=== PATIENT | female | born 1955 | race Caucasian/White ===

== ENCOUNTER → 2017-07-13 | Outpatient (CLI) | payer BC ==
--- NOTE | 2017-07-14 08:03 | MM ---
Reason for exam: screening (asymptomatic). Last mammogram was performed 1 year ago. History: Patient is postmenopausal and has history of other cancer at age 51. Taking estrogen for 9 months. Physical Findings: A clinical breast exam by your physician is recommended on an annual basis and results should be correlated with mammographic findings. MG Screening Mammo w CAD Bilateral CC and MLO view(s) were taken. Prior study comparison: July 03, 2016, bilateral MG screening mammo w CAD. July 18, 2015, bilateral MG screening mammo w CAD. There are scattered fibroglandular densities. Stable benign calcifications. There is no discrete abnormality. No significant changes when compared with prior studies. ASSESSMENT: Benign, BI-RAD 2 RECOMMENDATION: Routine screening mammogram of both breasts in 1 year.
== END | disposition home or self-care (01) ==
LOC: RADMAMWWP 06:52
PROVIDERS: ATTEND Family Medicine
DX: Z12.31 Encounter for screening mammogram for malignant neoplasm of breast (principal)

== ENCOUNTER → 2018-07-25 | Outpatient (CLI) | payer BC ==
--- NOTE | 2018-07-26 10:29 | MM ---
Reason for exam: screening (asymptomatic). Last mammogram was performed 1 year ago. History: Patient is postmenopausal and has history of other cancer at age 51. Taking estrogen for 9 months. Physical Findings: A clinical breast exam by your physician is recommended on an annual basis and results should be correlated with mammographic findings. MG 3D Screening Mammo W/Cad Bilateral CC and MLO view(s) were taken. Prior study comparison: July 13, 2017, bilateral MG screening mammo w CAD. July 03, 2016, bilateral MG screening mammo w CAD. There are scattered fibroglandular densities. There are benign appearing round calcifications bilaterally. There is chronic nodularity bilaterally. There is no discrete abnormality. ASSESSMENT: Benign, BI-RAD 2 RECOMMENDATION: Routine screening mammogram of both breasts in 1 year.
== END | disposition home or self-care (01) ==
LOC: RADMAMWWP 07:11
PROVIDERS: ATTEND Family Medicine
DX: Z12.31 Encounter for screening mammogram for malignant neoplasm of breast (principal)
CPT/HCPCS: 77063; 77067

== ENCOUNTER → 2019-07-26 | Outpatient (CLI) | payer MEDICARE ==
[2019-07-26 08:34] LABS: Basophils # (A) 0.1 k/uL (0-0.2); Basophils % (A) 1 %; Eosinophils # (A) 0.1 k/uL (0-0.7); Eosinophils % (A) 2 %; Lymphocytes % (A) 33 %; MCH 29.2 pg (25.0-35.0); MCHC 33.3 g/dL (31.0-37.0); MCV 87.7 fL (80.0-100.0); Mean Platelet Volume 6.1; Monocytes # (A) 0.3 k/uL (0-1.0); Monocytes % (A) 5 %; Neutrophils # (A) 3.4 k/uL (1.3-7.7); Neutrophils % (A) 57 %; Platelet Count 313 k/uL (150-450); RBC 5.13 m/uL (3.80-5.40); RDW 13.1 % (11.5-15.5); WBC 6.1 k/uL (3.8-10.6)
[2019-07-26 08:40] LABS: Albumin 4.7 g/dL (3.5-5.0); Calcium 10.4 mg/dL (8.4-10.2); Total Bilirubin 0.5 mg/dL (0.2-1.3); Total Protein 8.2 g/dL (6.3-8.2)
[2019-07-26 09:36] LABS: T4, Free (Free Thyroxine) 1.19 ng/dL (0.78-2.19)
--- NOTE | 2019-07-27 09:02 | MM ---
Reason for exam: screening (asymptomatic). Last mammogram was performed 1 year ago. History: Patient is postmenopausal and has history of other cancer at age 51. Took estrogen for 9 months. Physical Findings: A clinical breast exam by your physician is recommended on an annual basis and results should be correlated with mammographic findings. MG 3D Screening Mammo W/Cad Bilateral CC and MLO view(s) were taken. Prior study comparison: July 25, 2018, bilateral MG 3d screening mammo w/cad. July 13, 2017, bilateral MG screening mammo w CAD. There are scattered fibroglandular densities. Benign appearing calcifications in the right breast. No significant changes when compared with prior studies. ASSESSMENT: Benign, BI-RAD 2 RECOMMENDATION: Routine screening mammogram of both breasts in 1 year.
== END | disposition home or self-care (01) ==
LOC: RADMAMWWP 07:23
PROVIDERS: ATTEND Family Medicine
DX: Z12.31 Encounter for screening mammogram for malignant neoplasm of breast (principal); I10 Essential (primary) hypertension; Z11.59 Encounter for screening for other viral diseases
CPT/HCPCS: 36415; 77063; 77067; 80053; 80061; 84439; 84443; 85025; 86803

== ENCOUNTER 2020-06-21 20:26 | Inpatient (IN) | payer MEDICARE ==
[2020-06-21] MEDS ORDERED: SODIUM CHLORIDE 0.9% 1,000 ML IV STA (21:05)
[2020-06-21] MEDS ORDERED: ONDANSETRON 4 MG/2 ML VIAL IVP STA (21:05)
[2020-06-21] MEDS ORDERED: MORPHINE SULFATE 4 MG/ML SYRINGE IV STA ×2 (21:05→22:46)
[2020-06-21 21:46] LABS: Basophils % (A) 0 %; Eosinophils # (A) 0.3 k/uL (0-0.7); Eosinophils % (A) 2 %; HCT 45.2 % (34.0-46.0); HGB 14.6 gm/dL (11.4-16.0); Lymphocytes # (A) 1.4 k/uL (1.0-4.8); Lymphocytes % (A) 11 %; MCH 27.8 pg (25.0-35.0); MCHC 32.3 g/dL (31.0-37.0); Mean Platelet Volume 6.7; Monocytes # (A) 0.5 k/uL (0-1.0); Monocytes % (A) 4 %; Neutrophils # (A) 10.9 k/uL (1.3-7.7); Neutrophils % (A) 83 %; Platelet Count 321 k/uL (150-450); RBC 5.26 m/uL (3.80-5.40); RDW 12.8 % (11.5-15.5); WBC 13.1 k/uL (3.8-10.6)
[2020-06-21 21:55] LABS: ALT 27 U/L (4-34); AST 32 U/L (14-36); African American GFR (CKD) >90 (>60 ml/min/1.73 sqM); Albumin 4.4 g/dL (3.5-5.0); Alkaline Phosphatase 63 U/L (38-126); Anion Gap 6 mmol/L; Blood Urea Nitrogen 14 mg/dL (7-17); Calcium 9.7 mg/dL (8.4-10.2); Carbon Dioxide 25 mmol/L (22-30); Chloride 104 mmol/L (98-107); Glucose 112 mg/dL (74-99); Non-African American GFR(CKD) 85 (>60 ml/min/1.73 sqM); Potassium 4.1 mmol/L (3.5-5.1); Sodium 135 mmol/L (137-145); Total Bilirubin 0.5 mg/dL (0.2-1.3); Total Protein 7.4 g/dL (6.3-8.2)
[2020-06-21 22:40] LABS: Appearance,Urine Clear (Clear); Bilirubin,Urine Negative (Negative); Blood,Urine Negative (Negative); Color,Urine Yellow; Glucose,Urine (UA) Negative (Negative); Ketones,Urine 1+ (Negative); Leukocyte Esterase,Urine Negative (Negative); Nitrite,Urine Negative (Negative); Protein,Urine Negative (Negative); Specific Gravity,Urine 1.018 (1.001-1.035); Urobilinogen,Urine <2.0 mg/dL (<2.0)
--- NOTE | 2020-06-21 23:14 | CT ---
EXAMINATION TYPE: CT abdomen pelvis w con DATE OF EXAM: 06/21/2020 COMPARISON: None HISTORY: abdominal pain, constipation CT DLP: 1526.90 mGycm Automated exposure control for dose reduction was used. CONTRAST: Performed with IV Contrast, patient injected with 100 mL of Isovue 300. Images obtained from the diaphragm to the floor the pelvis with IV contrast. Lung bases are clear of consolidation. There is no pleural effusion. There is some subdiaphragmatic c alcification on the right side adjacent to the liver. This could relate to old hematoma or infection. Spleen appears normal. There is no evidence of pancreatic mass. There are clips from cholecystectomy . Bile ducts are not dilated. There is mild fat stranding in the left anterior pararenal space. There is no sign of pancreatic mass. Pancreatic duct distally appears slightly enlarged. Distal duct measu res up to 7 mm. There is no retroperitoneal adenopathy. Kidneys show satisfactory contrast opacificat ion. There is no hydronephrosis. There are left-sided renal parapelvic cysts. There is no retroperito aroldo adenopathy. Bladder distends smoothly. There is no inguinal hernia. Uterus is anteverted. There are multiple sigmoid diverticula. There is no sign of diverticulitis. There is posterior fusion surgery with rods and screws from L3 to L5. There is no lumbar compression fracture. There is multilevel spondylotic changes in the thoracic and lumbar spine. The hip joints ar e intact. There is no evidence of a pelvic mass. Appendix is posterior and appears normal. IMPRESSION: There is a low density fluid in the left anterior pararenal space and around the spleen. The appearan ce is nonspecific. This could relate to pancreatitis. I do not see evidence of a pancreatic mass. Mil d ectasia of the distal pancreatic duct could relate to some degree of chronic pancreatitis. There is colonic diverticulosis without diverticulitis. Normal appendix. There is right-sided subphrenic calcification and minimal fluid that could be sequela of old infectio n or hemorrhage.
[2020-06-21] MEDS ORDERED: NALOXONE 0.4 MG/ML 1 ML VIAL IV PRN (23:43)
--- NOTE | 2020-06-21 23:45 | ED ---
General Adult HPI - General Chief complaint: Abdominal Pain Stated complaint: Abd Pain Time Seen by Provider: 06/21/20 20:39 Source: patient, family, RN notes reviewed, old records reviewed Mode of arrival: ambulatory Limitations: no limitations - History of Present Illness Initial comments: 64-year-old female patient proceeded to complain of abdominal pain. Patient reports that the pain began this morning and is generalized worsen the epigastric region. Denies any recent falls or trauma. Denies any other areas of pain or any other acute complaints. Systemic: Pt denies fatigue, fever/chills, rash. Pt denies weakness, night sweats, weight loss. Neuro: Pt denies headache, visual disturbances, syncope or pre-syncope. HEENT: Pt denies ocular discharge or irritation, otalgia, rhinorrhea, pharyngitis or notable lymphadenopathy. Cardiopulmonary: Pt denies chest pain, SOB, heart palpitations, dyspnea on exertion. Abdominal/GI: Pt denies diarrhea. : Pt denies dysuria, burning w/ urination, frequency/urgency. Denies new onset urinary or bowel incontinence. MSK: Pt denies myalgia, loss of strength or function in extremities. Neuro: Pt denies new onset weakness, paresthesias. - Related Data Home Medications Medication Instructions Recorded Confirmed Aspirin EC [Ecotrin Low Dose] 81 mg PO DAILY 06/21/20 06/21/20 Biotin 10,000 mcg PO DAILY 06/21/20 06/21/20 Cyclobenzaprine [Flexeril] 5 mg PO BID 06/21/20 06/21/20 Docusate [Colace] 100 mg PO BID PRN 06/21/20 06/21/20 Ibuprofen 200 mg PO Q8H PRN 06/21/20 06/21/20 Omeprazole 20 mg PO DAILY 06/21/20 06/21/20 Simvastatin [Zocor] 20 mg PO DAILY 06/21/20 06/21/20 Turmeric Root Extract [Turmeric] 500 mg PO DAILY 06/21/20 06/21/20 Ubidecarenone [Co Q-10] 400 mg PO DAILY 06/21/20 06/21/20 amLODIPine [Norvasc] 5 mg PO DAILY 06/21/20 06/21/20 diphenhydrAMINE [Benadryl] 25 mg PO HS 06/21/20 06/21/20 rOPINIRole HCL [Requip] 0.5 mg PO DAILY 06/21/20 06/21/20 Allergies Allergy/AdvReac Type Severity Reaction Status Date / Time Sulfa (Sulfonamide Allergy Anaphylaxis Verified 06/21/20 22:33 Antibiotics) Review of Systems ROS Statement: Those systems with pertinent positive or pertinent negative responses have been documented in the HPI. ROS Other: All systems not noted in ROS Statement are negative. Past Medical History Past Medical History: GERD/Reflux, Hyperlipidemia, Hypertension Additional Past Medical History / Comment(s): restless leg, back pain History of Any Multi-Drug Resistant Organisms: None Reported Past Surgical History: Back Surgery, Hernia Repair, Orthopedic Surgery, Tubal Ligation Additional Past Surgical History / Comment(s): right shoulder/wrist Past Psychological History: No Psychological Hx Reported Smoking Status: Never smoker Past Alcohol Use History: Occasional Past Drug Use History: None Reported General Exam - General Exam Comments Initial Comments: Constitutional: NAD, AOX3, Pt has pleasant affect. HEENT: NC/AT, trachea midline, neck supple, no lymphadenopathy. External ears appear normal, without discharge. Mucous membranes moist. Eyes PERRLA, EOM intact. There is no scleral icterus. No pallor noted. Cardiopulmonary: RRR, no murmurs, rubs or gallops, no JVD noted. Lungs CTAB in anterior and posterior castillo. No peripheral edema. Abdominal exam: Abdomen soft and non-distended. Abdomen tender epigastric region, mild generalized tenderness in all other quadrants.No hepatosplenomegaly. No ecchymosis Neuro: CN II-XII grossly intact. No nuchal rigidity. MSK: Full active ROM in upper and lower extremities, 5/5 stregnth. Limitations: no limitations Course Vital Signs 06/21/20 06/21/20 20:31 22:00 Temperature 98.4 F 98.4 F Pulse Rate 109 H 86 Respiratory 16 16 Rate Blood Pressure 151/83 143/73 O2 Sat by Pulse 95 96 Oximetry Medical Decision Making - Medical Decision Making 64-year-old female patient with the chief complaint abdominal pain. Patient vital signs are stable, afebrile. Abdomen is tender on palpation. Laboratory investigations are significant for leukocytosis, lipase over 20,000. CT abdomen and pelvis displayed consistent with pancreatitis. Patient initiated on IV fluids symptoms well-controlled and be admitted for further evaluation. Case discussed with Dr. Banks. - Lab Data Result diagrams: 06/21/20 21:25 06/21/20 21:25 Lab Results 06/21/20 06/21/20 06/21/20 Range/Units 21:25 21:25 21:25 WBC 13.1 H (3.8-10.6) k/uL RBC 5.26 (3.80-5.40) m/uL Hgb 14.6 (11.4-16.0) gm/dL Hct 45.2 (34.0-46.0) % MCV 86.0 (80.0-100.0) fL MCH 27.8 (25.0-35.0) pg MCHC 32.3 (31.0-37.0) g/dL RDW 12.8 (11.5-15.5) % Plt Count 321 (150-450) k/uL Neutrophils % 83 % Lymphocytes % 11 % Monocytes % 4 % Eosinophils % 2 % Basophils % 0 % Neutrophils # 10.9 H (1.3-7.7) k/uL Lymphocytes # 1.4 (1.0-4.8) k/uL Monocytes # 0.5 (0-1.0) k/uL Eosinophils # 0.3 (0-0.7) k/uL Basophils # 0.0 (0-0.2) k/uL Sodium 135 L (137-145) mmol/L Potassium 4.1 (3.5-5.1) mmol/L Chloride 104 (98-107) mmol/L Carbon Dioxide 25 (22-30) mmol/L Anion Gap 6 mmol/L BUN 14 (7-17) mg/dL Creatinine 0.74 (0.52-1.04) mg/dL Est GFR (CKD-EPI)AfAm >90 (>60 ml/min/1.73 sqM) Est GFR (CKD-EPI)NonAf 85 (>60 ml/min/1.73 sqM) Glucose 112 H (74-99) mg/dL Plasma Lactic Acid Eric (0.7-2.0) mmol/L Calcium 9.7 (8.4-10.2) mg/dL Total Bilirubin 0.5 (0.2-1.3) mg/dL AST 32 (14-36) U/L ALT 27 (4-34) U/L Alkaline Phosphatase 63 (38-126) U/L Troponin I (0.000-0.034) ng/mL Total Protein 7.4 (6.3-8.2) g/dL Albumin 4.4 (3.5-5.0) g/dL Lipase >14714 H (23-300) U/L Urine Color Yellow Urine Appearance Clear (Clear) Urine pH 6.0 (5.0-8.0) Ur Specific [place] 1.018 (1.001-1.035) Urine Protein Negative (Negative) Urine Glucose (UA) Negative (Negative) Urine Ketones 1+ H (Negative) Urine Blood Negative (Negative) Urine Nitrite Negative (Negative) Urine Bilirubin Negative (Negative) Urine Urobilinogen <2.0 (<2.0) mg/dL Ur Leukocyte Esterase Negative (Negative) 06/21/20 06/21/20 Range/Units 21:25 21:25 WBC (3.8-10.6) k/uL RBC (3.80-5.40) m/uL Hgb (11.4-16.0) gm/dL Hct (34.0-46.0) % MCV (80.0-100.0) fL MCH (25.0-35.0) pg MCHC (31.0-37.0) g/dL RDW (11.5-15.5) % Plt Count (150-450) k/uL Neutrophils % % Lymphocytes % % Monocytes % % Eosinophils % % Basophils % % Neutrophils # (1.3-7.7) k/uL Lymphocytes # (1.0-4.8) k/uL Monocytes # (0-1.0) k/uL Eosinophils # (0-0.7) k/uL Basophils # (0-0.2) k/uL Sodium (137-145) mmol/L Potassium (3.5-5.1) mmol/L Chloride (98-107) mmol/L Carbon Dioxide (22-30) mmol/L Anion Gap mmol/L BUN (7-17) mg/dL Creatinine (0.52-1.04) mg/dL Est GFR (CKD-EPI)AfAm (>60 ml/min/1.73 sqM) Est GFR (CKD-EPI)NonAf (>60 ml/min/1.73 sqM) Glucose (74-99) mg/dL Plasma Lactic Acid Eric 0.9 (0.7-2.0) mmol/L Calcium (8.4-10.2) mg/dL Total Bilirubin (0.2-1.3) mg/dL AST (14-36) U/L ALT (4-34) U/L Alkaline Phosphatase (38-126) U/L Troponin I <0.012 (0.000-0.034) ng/mL Total Protein (6.3-8.2) g/dL Albumin (3.5-5.0) g/dL Lipase (23-300) U/L Urine Color Urine Appearance (Clear) Urine pH (5.0-8.0) Ur Specific [place] (1.001-1.035) Urine Protein (Negative) Urine Glucose (UA) (Negative) Urine Ketones (Negative) Urine Blood (Negative) Urine Nitrite (Negative) Urine Bilirubin (Negative) Urine Urobilinogen (<2.0) mg/dL Ur Leukocyte Esterase (Negative) - EKG Data -: EKG Interpreted by Me (and Dr. Banks) EKG Comments: ventricular rate 90,. Full 196, QRS 106, QT/QTc 362/442. Normal sensory rhythm, left axis deviation. No concern for acute ischemia. Disposition Clinical Impression: Pancreatitis Disposition: ADMITTED IP TO THIS HOSP Condition: Serious Is patient prescribed a controlled substance at d/c from ED?: No Referrals: Katherine Byrd MD [Primary Care Provider] - 1-2 days
[2020-06-22] MEDS: SODIUM CHLORIDE 0.9% 1,000 ML IV SCH ×6 (02:00→23:43)
[2020-06-22] MEDS: HYDROmorphone 0.5 MG/0.5 ML SYRINGE IVP PRN ×6 (03:21→23:42)
[2020-06-22] MEDS ORDERED: TEMAZEPAM 15 MG CAP PO PRN (14:53)
[2020-06-22] MEDS ORDERED: ALPRAZolam 0.25 MG TAB PO PRN (14:53)
[2020-06-22] MEDS ORDERED: HYDROcodone/APAP 5-325MG 1 EACH TAB PO PRN (14:53)
[2020-06-22] MEDS: ONDANSETRON 4 MG/2 ML VIAL IVP PRN (15:40)
--- NOTE | 2020-06-22 15:40 | XR ---
EXAMINATION TYPE: XR chest 1V portable DATE OF EXAM: 06/22/2020 COMPARISON: NONE HISTORY: Chest pain TECHNIQUE: Single view FINDINGS: There is no heart failure nor confluent pneumonic infiltrate. Costophrenic angles are clear . The bony thorax is intact. IMPRESSION: No active cardiopulmonary disease.
--- NOTE | 2020-06-22 15:52 | HP ---
HISTORY AND PHYSICAL DATE OF SERVICE: 06/22/2020 CHIEF COMPLAINT: Abdominal pain. HISTORY OF PRESENT ILLNESS: This 64-year-old woman with a past medical history of hypertension, hyperlipidemia, cholecystectomy being followed by Dr. Byrd in the outpatient setting, complaining of abdominal pain yesterday which started in the epigastrium and radiating downwards. The patient also noted to have occasional pain also in the back. The patient unable to keep anything down and the patient came to [facility] and admitted for further evaluation and treatment. Evaluation showed significant elevated lipase and CT scan of the abdomen also showed pancreatitis with some associated fluid accumulation also. Patient admitted for further evaluation and treatment. There is no history of fever, rigors. No history of headache, loss of consciousness, seizures at this time. PAST MEDICAL HISTORY: Hypertension, hyperlipidemia, history of GERD, back surgery, cholecystectomy several years ago. MEDICATIONS: Ibuprofen, Colace, coenzyme Q, turmeric, biotin, Requip, Benadryl, Zocor, omeprazole, Ecotrin, Norvasc and Flexeril. ALLERGIES: SULFA. FAMILY HISTORY: No history of heart disease or strokes in the family. SOCIAL HISTORY: Occasional alcohol. No history of smoking. REVIEW OF SYSTEMS: ENT: No diminished vision. No diminished hearing. CARDIOVASCULAR: No angina or palpitations. RESPIRATIONS: No cough or hemoptysis. GI as mentioned earlier. : No dysuria. NERVOUS SYSTEM: No numbness, weakness. ALLERGY/IMMUNOLOGY: No asthma. No hayfever. MUSCULOSKELETAL: As mentioned earlier. HEMATOLOGY/ONCOLOGY: No history of anemia. ENDOCRINE: No history of diabetes or hypothyroidism. CONSTITUTIONAL: As mentioned earlier. DERMATOLOGY: Negative. RHEUMATOLOGY: Negative. PSYCHIATRIC: As mentioned earlier. PHYSICAL EXAMINATION: Alert and oriented times three. Pulse 89, blood pressure 130/63, respiration 12, temperature 98.8, pulse ox 98% on room air. HEENT: Conjunctivae normal. NECK: No JVD. CARDIOVASCULAR: S1, S2 muffled. RESPIRATORY: Breath sounds diminished in the bases. No rhonchi. No crackles. ABDOMEN: Soft. Obese. Mild diffuse tenderness present in the epigastrium and as well as lower part of the abdomen. No guarding. No rigidity. No mass palpable. No ascites. Bowel sounds present. LEGS: No edema. No swelling. NERVOUS SYSTEM: Higher functions as mentioned earlier. Moves all 4 limbs. No focal motor or sensory deficit. LYMPHATICS: No lymph nodes palpable in the neck, axillae, or groin. SKIN: No ulcer. No rash. No bleeding. JOINTS: No active deforming arthropathy. LABS: WBC 13.2, hemoglobin 14.6, sodium 130, potassium 4.1. Glucose is 112. Lipase is more than 20,000. ASSESSMENT: 1. Acute severe pancreatitis with severe abdominal pain. 2. Increased WBC. 3. Possible severe acute respiratory syndrome, present on admission. 4. Hyponatremia. 5. Increased random blood sugar. 6. History of cholecystectomy. 7. History of gastroesophageal reflux disease. 8. Hypertension. 9. Hyperlipidemia. 10.History of restless legs syndrome. 11.History of degenerative joint disease/back pain. 12.History of tubal ligation. 13.Obesity, with body mass index of 34.7. RECOMMENDATIONS AND DISCUSSION: This 64-year-old woman who presented with multiple complex medical issues, we will monitor the patient closely. Continue the current medications. Keep the patient n.p.o. except medications. Otherwise, symptomatic treatment. Pain management. Antinausea medications. Consult gastroenterology. Repeat labs. EKG showed no acute abnormality. I would recommend a portable chest x-ray also to complete the workup. Otherwise, the exact etiology of pancreatitis is unknown at this time. Overall prognosis guarded. Further recommendations to follow. A copy of this dictation being forwarded to Dr. Byrd who is the primary physician. MMRYLANL / YAHAIRAN: [id number] / MTDD
[2020-06-22] MEDS: PANTOPRAZOLE 40 MG/10 ML VIAL IVP SCH ×2 (15:58→21:55)
[2020-06-22] MEDS: HEPARIN SODIUM,PORCINE 5,000 UNIT/ML 1 ML VIAL SQ SCH ×2 (15:59→20:41)
[2020-06-22] MEDS: MEROPENEM 2 GM in SODIUM CHLORIDE 0.9% 100 ML IVPB SCH ×2 (16:59→23:42)
[2020-06-22 19:17] LABS: Appearance,Urine Clear (Clear); Bilirubin,Urine Negative (Negative); Blood,Urine Negative (Negative); Color,Urine Yellow; Glucose,Urine (UA) Negative (Negative); Ketones,Urine 1+ (Negative); Leukocyte Esterase,Urine Small (Negative); Mucus,Urine Rare /hpf; Nitrite,Urine Negative (Negative); PH, Urine 5.5 (5.0-8.0); Protein,Urine Trace (Negative); RBC,Urine 1 /hpf (0-5); Specific Gravity,Urine 1.021 (1.001-1.035); Squamous Epithelial Cell,Urine 2 /hpf (0-4); Urobilinogen,Urine <2.0 mg/dL (<2.0); WBC,Urine 11 /hpf (0-5)
[2020-06-23] MEDS: ACETAMINOPHEN TAB 500 MG TAB PO PRN ×2 (03:56→13:00)
[2020-06-23] MEDS: SODIUM CHLORIDE 0.9% 1,000 ML IV SCH ×4 (03:57→21:13)
[2020-06-23 05:23] LABS: Basophils # (A) 0.1 k/uL (0-0.2); Basophils % (A) 0 %; Eosinophils # (A) 0.2 k/uL (0-0.7); Eosinophils % (A) 1 %; HCT 38.8 % (34.0-46.0); HGB 12.3 gm/dL (11.4-16.0); Lymphocytes % (A) 7 %; MCH 28.1 pg (25.0-35.0); MCHC 31.8 g/dL (31.0-37.0); MCV 88.3 fL (80.0-100.0); Mean Platelet Volume 7.2; Monocytes # (A) 0.5 k/uL (0-1.0); Monocytes % (A) 4 %; Neutrophils # (A) 12.6 k/uL (1.3-7.7); Neutrophils % (A) 88 %; Platelet Count 181 k/uL (150-450); RBC 4.39 m/uL (3.80-5.40); WBC 14.4 k/uL (3.8-10.6)
[2020-06-23] MEDS: HYDROmorphone 0.5 MG/0.5 ML SYRINGE IVP PRN ×2 (05:25→19:42)
[2020-06-23] MEDS: MEROPENEM 2 GM in SODIUM CHLORIDE 0.9% 100 ML IVPB SCH ×3 (09:20→23:42)
[2020-06-23] MEDS: PANTOPRAZOLE 40 MG/10 ML VIAL IVP SCH ×2 (10:17→21:13)
[2020-06-23] MEDS: HEPARIN SODIUM,PORCINE 5,000 UNIT/ML 1 ML VIAL SQ SCH ×2 (10:18→21:14)
[2020-06-23] MEDS: amLODIPine 5 MG TAB PO SCH (10:18)
[2020-06-23 11:34] LABS: African American GFR (CKD) 110.1 (60.0-200.0); Albumin 3.5 g/dL (3.80-4.90); Albumin/Globulin Ratio 1.75 (1.60-3.17); Anion Gap 8.3 mmol/L (4.00-12.00); Calcium 8.2 mg/dL (8.7-10.3); Carbon Dioxide 21.7 mmol/L (21.6-31.8); Chol/HDL Ratio 2.37; LDL Cholesterol,Calculated 66.4 mg/dL (0.0-131.0); Potassium 4.3 mmol/L (3.5-5.5); Total Bilirubin 0.3 mg/dL (0.2-1.2); Total Protein 5.5 g/dL (6.2-8.2); VLDL Calculation 14.6 mg/dL (5.00-40.00)
[2020-06-23 11:39] VITALS: RESP 16
--- NOTE | 2020-06-23 13:35 | CONS ---
CONSULTATION DATE OF SERVICE: June 23, 2020. REASON FOR CONSULTATION: Acute pancreatitis. REQUESTING PHYSICIAN: Dr. Katherine Byrd. HISTORY OF PRESENT ILLNESS: The patient is a 64-year-old pleasant white female admitted to the hospital with acute onset of severe epigastric pain that started on Wednesday morning. The pain continued to progressively get worse associated with nausea, vomiting, came to the emergency room and was noted to have elevated amylase and lipase consistent with acute pancreatitis. She never had these symptoms in the past. She has remote history of gallbladder surgery in for gallstones. The patient denies any family history of pancreatitis. Prior to the onset of these symptoms, she was in good health. No recent NSAID use. No prior history of peptic ulcer disease. She denies taking any new medications recently. PAST MEDICAL HISTORY: Significant for hypertension, hyperlipidemia, gastroesophageal reflux disease. PAST SURGICAL HISTORY: Back surgery, hernia repair, orthopedic surgery with right shoulder and wrist surgery and tubal ligation. MEDICATIONS: Medications at home include Prilosec, Zocor, tumeric, coenzyme Q10, Norvasc, Benadryl, Requip, Colace, ibuprofen, aspirin, biotin, Flexeril. ALLERGIES: SULFA. SOCIAL HISTORY: No smoking. No alcohol use. FAMILY HISTORY: Unremarkable. REVIEW OF SYSTEMS: CARDIOPULMONARY: No chest pain, no shortness of breath. : No dysuria or hematuria. MUSCULOSKELETAL unremarkable. SKIN unremarkable. ENDOCRINE unremarkable. PSYCHIATRIC: Unremarkable. NEUROLOGY: Unremarkable. ENT/VISION: Unremarkable. CONSTITUTIONAL: No weight loss. No fever, chills, night sweats. PHYSICAL EXAMINATION: Appears comfortable. VITAL SIGNS: Stable. Blood pressure 119/69, pulse rate 95, temperature 98.6. HEENT examination unremarkable. Conjunctivae pink. Sclerae anicteric. Oral cavity no lesions. NECK no JVD or lymph node enlargement. CHEST was clear to auscultation. HEART: Regular rate and rhythm. ABDOMEN: Soft. Bowel sounds are positive. Mild tenderness. Mild to moderate tenderness in the epigastric area. Rest of the abdomen was slightly obese but nontender. EXTREMITIES: No pedal edema. NEUROLOGIC: Alert and oriented x3. No focal deficits. LABS: Done yesterday WBC 13.1, hemoglobin 14.6, platelets normal. Basic metabolic panel was within normal limits. AST, ALT, T-bilirubin, alkaline phosphatase are normal. Lipase is more than 20,000. Labs from today WBC 14.4, hemoglobin 12.3, platelets normal, but amylase and lipase are not available. CT of the abdomen done in the emergency room at the time of admission to the hospital showed changes consistent with acute pancreatitis, evidence of cholecystectomy. No evidence of pancreatic mass and no biliary ductal dilation. There was mild ectasia of the distal pancreatic duct and possibility of chronic pancreatitis could not be excluded, colonic diverticulosis seen. IMPRESSION: Acute pancreatitis, first episode. Patient presented with acute onset of severe epigastric pain two days ago with elevated amylase and lipase consistent with acute pancreatitis. Serum transaminases are within normal limits which makes it unlikely we are dealing with biliary pancreatitis. She has remote history of cholecystectomy 40 years ago. Etiology of pancreatitis remains unclear. She has no history of alcohol use and no family history of pancreatitis. RECOMMENDATIONS: 1. Continue with aggressive IV hydration. 2. Symptomatic and supportive care with pain medications. 3. We will start her on a clear liquid diet. 4. Requested for lipase for today, which is still pending. 5. Obtain antinuclear antibody serum fasting triglycerides and IgG4 levels. 6. We will follow with you closely. Thank you for this consultation. MMODL / IJN: [id number] /
--- NOTE | 2020-06-23 16:03 | PN ---
PROGRESS NOTE DATE OF SERVICE: 06/23/2020 This 64-year-old woman who was admitted with possible acute severe pancreatitis, also had acute severe abdominal pain. The amylase is still elevated to 237. Lipase is 259. The patient is being closely monitored at this time. White count is elevated to 14.4. The patient started on broad-spectrum IV antibiotics. The most recent chest x-ray which was personally reviewed by me showed some increased bronchovascular markings. Otherwise, no active disease. Dr. Guo saw the patient from the Gastroenterology, recommended aggressive IV hydration, symptomatic supportive care and TANJA and triglycerides and IG4 levels. The etiology of the pancreatitis remains uncertain. Patient had cholecystomy previously. PAST MEDICAL HISTORY: Reviewed. REVIEW OF SYSTEMS: CARDIOVASCULAR SYSTEM: No angina or palpitations. RESPIRATORY: As mentioned earlier. GI: As mentioned earlier. : No dysuria. NERVOUS SYSTEM: No numbness or weakness. MEDICATIONS: Reviewed include Tylenol, [place] 5 mg, Xanax, Norvasc, heparin, Narcan, Protonix. PHYSICAL EXAM: Patient is alert, oriented x3. Pulse 92, blood pressure 115/70, respirations 16, temperature 98 degrees, pulse ox 98% on room air. HEENT: Conjunctivae normal. Oral mucosa moist. NECK: No jugular venous distention. No lymph node enlargement. CARDIOVASCULAR: S1, S2, muffled. No S3, no S4, RESPIRATORY: Diminished breath sounds at the bases. Scattered rhonchi and crackles. ABDOMEN: Soft. Mild diffuse tenderness in the epigastrium. Otherwise, no guarding, no rigidity. No mass palpable. LEGS: No edema, no swelling. NERVOUS SYSTEM: Higher functions mentioned earlier. Moves all four limbs. No focal motor or sensory deficits. LYMPHATICS: No lymph node in neck or axilla. SKIN: No rash. JOINTS: No active deforming arthropathy. LABS: At this time shows WBC 14.2, hemoglobin 12.2, sodium 137, potassium 4.3, total protein ( ).5, amylase 327 and lipase is 259. ASSESSMENT: 1. Acute severe pancreatitis, severe abdominal pain. 2. Increased WBC. 3. Possible mild urinary tract infection, present on admission. 4. Possible systemic inflammatory response syndrome, present on admission. 5. Hyponatremia. 6. Increased random blood sugar. 7. History of cholecystectomy. 8. History of degenerative joint disease. 9. History of gastroesophageal reflux disease. 10.Hypertension. 11.Hyperlipidemia. 12.History of restless legs syndrome. 13.History of back pain. 14.History of tubal ligation. 15.Obesity with body mass index of 34.7. 16.FULL CODE. RECOMMENDATIONS AND DISCUSSION: Recommend to continue current management and symptomatic treatment. Will start with clear liquids and advance the diet if the patient tolerates. Repeat amylase, TANJA, IgG levels and triglyceride level. Otherwise, empiric antibiotics, cultures. Guarded prognosis because of multiple complex medical problems. Further recommendations to follow. MMODL / IJN: [id number] /
[2020-06-23] MEDS: ONDANSETRON 4 MG/2 ML VIAL IVP PRN (18:18)
[2020-06-24] MEDS: SODIUM CHLORIDE 0.9% 1,000 ML IV SCH ×2 (04:15→08:26)
[2020-06-24 05:03] VITALS: BP 139/73; PULSE 89; TEMP 98.7
[2020-06-24 05:07] LABS: Basophils % (A) 0 %; Eosinophils # (A) 0.3 k/uL (0-0.7); Eosinophils % (A) 2 %; HCT 35.6 % (34.0-46.0); HGB 11.7 gm/dL (11.4-16.0); Lymphocytes # (A) 1.4 k/uL (1.0-4.8); Lymphocytes % (A) 9 %; MCH 28.4 pg (25.0-35.0); MCHC 32.9 g/dL (31.0-37.0); MCV 86.4 fL (80.0-100.0); Mean Platelet Volume 7.2; Monocytes # (A) 0.6 k/uL (0-1.0); Monocytes % (A) 4 %; Neutrophils % (A) 83 %; Platelet Count 240 k/uL (150-450); RBC 4.12 m/uL (3.80-5.40); RDW 12.9 % (11.5-15.5); WBC 14.4 k/uL (3.8-10.6)
[2020-06-24] MEDS: PANTOPRAZOLE 40 MG/10 ML VIAL IVP SCH (08:26)
[2020-06-24] MEDS: amLODIPine 5 MG TAB PO SCH (08:26)
[2020-06-24] MEDS: HEPARIN SODIUM,PORCINE 5,000 UNIT/ML 1 ML VIAL SQ SCH (08:26)
[2020-06-24] MEDS: MEROPENEM 2 GM in SODIUM CHLORIDE 0.9% 100 ML IVPB SCH (10:19)
[2020-06-24 10:58] LABS: African American GFR (CKD) 116.9 (60.0-200.0); Albumin 3.4 g/dL (3.80-4.90); Albumin/Globulin Ratio 1.7 (1.60-3.17); Anion Gap 8.3 mmol/L (4.00-12.00); Calcium 8.2 mg/dL (8.7-10.3); Carbon Dioxide 22.7 mmol/L (21.6-31.8); Non-African American GFR(CKD) 100.9 (60.0-200.0); Potassium 3.7 mmol/L (3.5-5.5); Total Bilirubin 0.4 mg/dL (0.2-1.2); Total Protein 5.4 g/dL (6.2-8.2)
--- NOTE | 2020-06-25 05:00 | DS ---
DISCHARGE SUMMARY DATE OF SERVICE: 06/24/2020 FINAL DIAGNOSES: 1. Acute severe pancreatitis with severe abdominal pain, improved. 2. Increased WBC. 3. Possible mild urinary tract infection, present on admission, improved. 4. Possible SIRS, present on admission, improved. 5. Hyponatremia. 6. Increased random blood sugar. 7. History of cholecystectomy. 8. History of degenerative joint disease. 9. History of gastroesophageal reflux disease. 10.Hypertension. 11.Hyperlipidemia. 12.History of restless legs syndrome. 13.History of back pain. 14.History of tubal ligation. 15.Obesity with body mass index of 34.7. 16.FULL CODE. DISCHARGE DISPOSITION: The patient will be discharged in stable condition with guarded prognosis. HISTORY OF PRESENT ILLNESS: This 64-year-old woman with a past medical history of multiple medical problems being followed by Dr. Byrd in the outpatient setting admitted with features of acute severe pancreatitis. Patient was treated symptomatically. Patient improved significantly. Amylase improved to 94, lipase was 70. On presentation, it was more than 20,000. TANJA was negative. Patient was seen by Dr. Guo, recommended outpatient followup. Patient also had abdomen and pelvis CAT scan which showed evidence of pancreatitis. Otherwise, no other abnormality was noted but however, I recommend the patient to have a repeat CT scan of the abdomen and pelvis in the next 1-2 months. On exam, vitals are stable. CARDIOVASCULAR: S1, S2 muffled. ABDOMEN: Soft. NERVOUS SYSTEM: No focal deficits. DISCHARGE ADVICE AND MEDICATIONS: 1. Diet is soft, bland as tolerated. 2. Follow up with Dr. Byrd in 2-3 days with CBC, CMP, amylase, lipase. 3. Follow with Dr. David Guo, Gastroenterology, as recommended. Medications are as follows: 1. Benadryl p.r.n., as before. 2. Biotin 10,000 mcg p.o. daily. 3. Coenzyme Q 400 mg daily. 4. Colace 100 mg b.i.d. p.r.n. 5. Ecotrin 81 mg p.o. daily. 6. Flexeril 5 mg p.o. b.i.d. 7. Ibuprofen p.r.n. 8. Norvasc 5 mg p.o. daily. 9. Omeprazole 20 mg daily. 10.Requip 0.5 mg daily. 11.Turmeric extract 500 mg p.o. daily. 12.Zocor 20 mg daily. 13.Protonix 40 mg p.o. daily. Once again the patient will be discharged in stable condition with guarded prognosis. MMODL / IJN: [id number] /
== END 2020-06-24 13:25 | disposition home or self-care (01) | DRG 439 ==
LOC: EC 20:26 → 4SSUR 23:21 → 6NMEDSUR 06-22 13:07
PROVIDERS: ADMIT Hospitalist; ATTEND Hospitalist
DX: K85.90 Acute pancreatitis without necrosis or infection, unspecified (principal); E87.1 Hypo-osmolality and hyponatremia; N39.0 Urinary tract infection, site not specified; E66.9 Obesity, unspecified; Z68.34 Body mass index [BMI] 34.0-34.9, adult; E78.5 Hyperlipidemia, unspecified; G25.81 Restless legs syndrome; I10 Essential (primary) hypertension; Z79.82 Long term (current) use of aspirin; Z90.49 Acquired absence of other specified parts of digestive tract; Z98.51 Tubal ligation status; R73.9 Hyperglycemia, unspecified; Z79.1 Long term (current) use of non-steroidal anti-inflammatories (NSAID); Z79.899 Other long term (current) drug therapy; M19.90 Unspecified osteoarthritis, unspecified site; M54.9 Dorsalgia, unspecified
CPT/HCPCS: 36415; 71045; 74177; 80053; 80061; 81001; 81003; 82150; 83605; 83690; 84478; 84484; 85025; 86038; 87040; 93005; 96361; 96374; 96375; 96376; 99285

== ENCOUNTER → 2021-01-21 | Outpatient (CLI) | payer MEDICARE ==
--- NOTE | 2021-01-22 11:25 | MM ---
Reason for exam: screening (asymptomatic). Last mammogram was performed 1 year and 6 months ago. History: Patient is postmenopausal and has history of other cancer at age 51. Took estrogen for 9 months. Physical Findings: A clinical breast exam by your physician is recommended on an annual basis and results should be correlated with mammographic findings. MG 3D Screening Mammo W/Cad Bilateral CC and MLO view(s) were taken. Prior study comparison: July 26, 2019, bilateral MG 3d screening mammo w/cad. July 25, 2018, bilateral MG 3d screening mammo w/cad. There are scattered fibroglandular densities. There is no discrete abnormality. No significant changes when compared with prior studies. ASSESSMENT: Negative, BI-RAD 1 RECOMMENDATION: Routine screening mammogram of both breasts in 1 year.
== END | disposition home or self-care (01) ==
LOC: RADMAMWWP 07:10
PROVIDERS: ATTEND Obstetrics & Gynecology
DX: Z12.31 Encounter for screening mammogram for malignant neoplasm of breast (principal); Z78.0 Asymptomatic menopausal state
CPT/HCPCS: 77063; 77067

== ENCOUNTER 2022-02-10 03:25 | Inpatient (IN) | payer MEDICARE ==
[2022-02-10] MEDS ORDERED: SODIUM CHLORIDE 0.9% 1,000 ML IV STA ×2 (03:36→05:34)
[2022-02-10] MEDS ORDERED: SODIUM CHLORIDE 0.9% 500 ML 500 ML IV STA (03:36)
--- NOTE | 2022-02-10 03:37 | ED ---
Chest Pain HPI - General Chief Complaint: Chest Pain Stated Complaint: Chest Pain, Shortness of breath Time Seen by Provider: 02/10/22 03:36 Source: patient, RN notes reviewed, old records reviewed Mode of arrival: wheelchair Limitations: no limitations - History of Present Illness Initial Comments: This is a 4-year-old female with chest pain and abdominal pain that woke her from sleep severe nausea vomiting sweating. Patient feels that she cannot take a deep breath. She does admit to history of pancreatitis but states this feels different feels worse. Patient denies history of drinking has had her gallbladder removed MD Complaint: chest pain, other (abdominal pain) -: hour(s) Onset: awoke with symptoms Pain Location: epigastric Pain Radiation: back, abdomen Severity: severe Severity scale (1-10): 10 Quality: tightness, sharp Consistency: constant Improves With: nothing Worsens With: nothing Anginal Symptoms: dyspnea Other Symptoms: acid taste in mouth Treatments Prior to Arrival: none - Related Data Home Medications Medication Instructions Recorded Confirmed amLODIPine [Norvasc] 5 mg PO DAILY 06/21/20 02/10/22 rOPINIRole HCL [Requip] 0.5 mg PO HS 06/21/20 02/10/22 Baclofen [Lioresal] 10 mg PO HS 02/10/22 02/10/22 Famotidine [Pepcid] 40 mg PO DAILY 02/10/22 02/10/22 Ibuprofen [Motrin] 800 mg PO Q8H PRN 02/10/22 02/10/22 Multivitamins, Thera [Multivitamin 1 tab PO DAILY 02/10/22 02/10/22 (formulary)] Rosuvastatin [Crestor] 10 mg PO HS 02/10/22 02/10/22 Previous Rx's Medication Instructions Recorded Acetaminophen Tab [Tylenol] 325 mg PO Q4HR PRN #60 tab 02/13/22 Metoclopramide [Reglan] 5 mg PO TID #30 tab 02/13/22 Ondansetron Odt [Zofran Odt] 4 mg PO Q8HR PRN #20 tab 02/13/22 Pantoprazole [Protonix] 40 mg PO DAILY 14 Days #14 tab 02/13/22 Allergies Allergy/AdvReac Type Severity Reaction Status Date / Time Sulfa (Sulfonamide Allergy Anaphylaxis Verified 02/10/22 06:48 Antibiotics) Review of Systems ROS Statement: Those systems with pertinent positive or pertinent negative responses have been documented in the HPI. ROS Other: All systems not noted in ROS Statement are negative. EKG Findings - EKG Comments: EKG Findings:: EKG is sinus rhythm 79 IN 218 QRS 104 QTC 398 Past Medical History Past Medical History: GERD/Reflux, Hyperlipidemia, Hypertension Additional Past Medical History / Comment(s): restless leg, back pain History of Any Multi-Drug Resistant Organisms: None Reported Past Surgical History: Back Surgery, Cholecystectomy, Hernia Repair, Orthopedic Surgery, Tubal Ligation Additional Past Surgical History / Comment(s): right shoulder/wrist Past Anesthesia/Blood Transfusion Reactions: No Reported Reaction Past Psychological History: No Psychological Hx Reported Smoking Status: Never smoker Past Alcohol Use History: Occasional Past Drug Use History: None Reported - Past Family History Mother Family Medical History: Cancer Additional Family Medical History / Comment(s): Mother had rectal CA Father Family Medical History: CVA/TIA General Exam Limitations: no limitations General appearance: anxious Head exam: Present: atraumatic, normocephalic, normal inspection Eye exam: Present: normal appearance, PERRL, EOMI. Absent: scleral icterus, conjunctival injection, periorbital swelling ENT exam: Present: normal exam, mucous membranes moist Neck exam: Present: normal inspection. Absent: tenderness, meningismus, lymphadenopathy Respiratory exam: Present: normal lung sounds bilaterally. Absent: respiratory distress, wheezes, rales, rhonchi, stridor Cardiovascular Exam: Present: regular rate, normal rhythm, normal heart sounds. Absent: systolic murmur, diastolic murmur, rubs, gallop, clicks GI/Abdominal exam: Present: soft, normal bowel sounds. Absent: distended, tenderness, guarding, rebound, rigid Extremities exam: Present: normal inspection, full ROM, normal capillary refill. Absent: tenderness, pedal edema, joint swelling, calf tenderness Back exam: Present: normal inspection Neurological exam: Present: alert, oriented X3, CN II-XII intact Psychiatric exam: Present: normal affect, normal mood Skin exam: Present: warm, dry, intact, normal color. Absent: rash Course Vital Signs 02/10/22 02/10/22 03:26 06:33 Temperature 97.9 F 98 F Pulse Rate 91 78 Respiratory 18 19 Rate Blood Pressure 175/83 133/77 O2 Sat by Pulse 97 98 Oximetry - Reevaluation(s) Reevaluation #1: 02/10/22 medical record is reviewed Patient symptoms improved here in the ER Patient informed results and questions answered Chest Pain MDM - MDM 66 female to the ER for evaluation of abdominal pain history of pancreatitis recurrent pancreatitis will this taken shoulder pills status Disposition Clinical Impression: Chest pain, Pancreatitis, Acute pancreatitis, Anterior pleuritic pain Disposition: ADMITTED IP TO THIS [facility] Condition: Stable Is patient prescribed a controlled substance at d/c from ED?: No
[2022-02-10] MEDS ORDERED: ONDANSETRON 4 MG/2 ML VIAL IVP STA (04:06)
[2022-02-10] MEDS ORDERED: MORPHINE SULFATE 4 MG/ML SYRINGE IVP STA (04:06)
[2022-02-10 04:38] LABS: Basophils % (A) 1 %; Eosinophils % (A) 4 %; HCT 43.9 % (34.0-46.0); HGB 14.4 gm/dL (11.4-16.0); Lymphocytes % (A) 32 %; MCH 28.2 pg (25.0-35.0); MCHC 32.8 g/dL (31.0-37.0); Mean Platelet Volume 7.1; Monocytes % (A) 6 %; Neutrophils % (A) 56 %; Platelet Count 360 k/uL (150-450); RDW 14.3 % (11.5-15.5); WBC 7.2 k/uL (3.8-10.6)
[2022-02-10 04:39] LABS: Eosinophils # (A) 0.3 k/uL (0-0.7); Lymphocytes # (A) 2.3 k/uL (1.0-4.8); Monocytes # (A) 0.4 k/uL (0-1.0)
[2022-02-10 04:52] LABS: INR 0.9 (<1.2); Partial Thromboplastin Time 23.1 sec (22.0-30.0); Prothrombin Time 9.8 sec (9.0-12.0)
[2022-02-10 04:57] LABS: ALT 25 U/L (4-34); AST 26 U/L (14-36); African American GFR (CKD) 82 (>60 ml/min/1.73 sqM); Albumin 4.6 g/dL (3.5-5.0); Alkaline Phosphatase 63 U/L (38-126); Anion Gap 12 mmol/L; Blood Urea Nitrogen 16 mg/dL (7-17); Calcium 9.3 mg/dL (8.4-10.2); Carbon Dioxide 23 mmol/L (22-30); Chloride 103 mmol/L (98-107); Glucose 104 mg/dL (74-99); Non-African American GFR(CKD) 71 (>60 ml/min/1.73 sqM); Potassium 4.4 mmol/L (3.5-5.1); Sodium 138 mmol/L (137-145); Total Bilirubin 0.2 mg/dL (0.2-1.3); Total Protein 7.5 g/dL (6.3-8.2)
--- NOTE | 2022-02-10 05:16 | CT ---
EXAMINATION TYPE: CT abdomen pelvis w con DATE OF EXAM: 02/10/2022 COMPARISON: June 21, 2020 HISTORY: chest pain x few hours. per dr, continue with exam without labs. CT DLP: 2234.4 mGycm Automated exposure control for dose reduction was used. CONTRAST: Performed with IV Contrast, patient injected with 100 mL of Isovue 370. There is some mild atelectasis at the lung bases. Heart size is top normal. No pleural effusion or pe ricardial effusion. There is some calcification in the superior lateral right lobe of the liver. No s uspicious mass seen. Spleen is intact. There is some fat stranding around the pancreas. Stomach is in tact. There are clips from cholecystectomy. There is no adrenal mass. The bile ducts are not dilated. Kidneys show satisfactory contrast opacific ation. There is no hydronephrosis. There is no retroperitoneal adenopathy. Bladder distends smoothly. There is no inguinal hernia. No free fluid in the pelvis. There are numerous sigmoid diverticula. No diverticulitis. Appendix is posterior and medial and appears normal. No ascites or free air. No keyon l obstruction. No small bowel mesenteric edema. The lumbar vertebra show normal alignment. There is posterior fusion surgery in the lower lumbar spin e. No compression fracture. The bony pelvis is intact. The hip joints are intact. IMPRESSION: There is fat stranding and fluid around the pancreas consistent with acute pancreatitis. Fluid increa sed compared to the old exam. Colonic diverticulosis without diverticulitis. Atelectasis at the lung bases increased compared to ol d exam. Subphrenic calcification in the superior lateral right lobe of the liver is stable compared t o old exam and consistent with benign disease.
[2022-02-10 05:22] LABS: Lipase >20000 U/L (23-300)
--- NOTE | 2022-02-10 05:22 | CT ---
EXAMINATION TYPE: CT angio chest DATE OF EXAM: 02/10/2022 COMPARISON: HISTORY: chest pain x few hours. per , continue with exam without labs. CT DLP: 2234.4 mGycm Automated exposure control for dose reduction was used. CONTRAST: Performed with IV Contrast, patient injected with 100 mL of Isovue 370. Images obtained from the thoracic inlet to the diaphragm with IV contrast. There are Three-D postproc essed images. Heart is enlarged. There is some patchy atelectasis at the lung bases. No pleural effusion. No perica rdial effusion. There are no hilar masses. There is no mediastinal adenopathy. Thoracic aorta is intact. No aneurysm or dissection. There is normal contrast opacification of the pulmonary arteries. There are no filling defects. There is degenerative spurring in the mid and lower thoracic spine. No compression fracture. Sternum is intact. No evidence of a rib fracture. Hepatic calcification adjacent to the diaphragm that could relate to old inflammatory process and scarring. IMPRESSION: Cardiomegaly. No evidence of pulmonary embolism. Mild atelectasis at the lung bases. No suspicious pu lmonary mass.
[2022-02-10] MEDS ORDERED: NALOXONE 0.4 MG/ML 1 ML VIAL IV PRN (05:27)
[2022-02-10] MEDS ORDERED: LORazepam 2 MG/ML INJ IV STA (05:29)
[2022-02-10] MEDS ORDERED: HYDROmorphone 1 MG/ML 1 ML SYRINGE IVP STA (05:29)
[2022-02-10] MEDS: SODIUM CHLORIDE 0.9% 1,000 ML IV SCH ×3 (06:28→20:05)
[2022-02-10] MEDS: PANTOPRAZOLE 40 MG/10 ML VIAL IV SCH (08:56)
[2022-02-10] MEDS: HYDROmorphone 1 MG/ML 1 ML SYRINGE IVP PRN ×4 (10:42→21:21)
--- NOTE | 2022-02-10 11:47 | P.CONS ---
History of Present Illness - Reason for Consult Consult date: 02/10/22 Acute pancreatitis Requesting physician: aKpil Dickinson - Chief Complaint Abdominal pain - History of Present Illness This a pleasant 66-year-old female who presented to the emergency department early this morning with complaints of severe chest pain/epigastric pain. Patient has a past medical history of hypertension, hyperlipidemia, and pancreatitis. As part of her workup in the emergency department she had blood work with a lipase greater than 20,000. She underwent CT of the abdomen and pelvis with findings of fat stranding and fluid around the pancreas consistent with acute pancreatitis. Gastroenterology was consulted for the above. Patient states she was first diagnosed with pancreatitis back in 2019. At that time she underwent and 8, IgG 4, and triglycerides which were normal. Denies any history of alcohol abuse. No family history of pancreatitis. She denies any recent new medications. She had her second attack while she was in [place] this year in December. She is scheduled for ERCP/EUS with [facility] on March 01. States abdominal pain has improved some, it is in the right upper quadrant radiating to the epigastric region. She has associated nausea but no vomiting. Labs: WBCs 7.2 hemoglobin 14.4 hematocrit 43 platelet count 360,000 INR 0.9 d- dimer 1.18 sodium 138 potassium 4.4 BUN 16 creatinine 0.85 Total bilirubin 0.2 AST 26 ALT 25 alkaline phosphatase 63 lipase greater than 20,000 CT abdomen and pelvis with findings of fat stranding and fluid around the pancreas consistent with acute pancreatitis. Fluid increased compared to old exam. Colonic diverticulosis without diverticulitis. Atelectasis at the lung b ases increased compared to old exam subphrenic calcification superior-lateral right lobe of the liver is stable compared to old exam and consistent with benign disease Chest CT angiogram: Cardiomegaly. No evidence of pulmonary embolism. Mild atelectasis at the lung bases. No suspicious pulmonary mass Review of Systems REVIEW OF SYSTEMS: CARDIOPULMONARY: No chest pain or shortness of breath. Gastrointestinal: Right upper quadrant and epigastric pain. Nausea with no vomiting. No hematemesis, coffee-ground emesis. No rectal bleeding, or melena. GENITOURINARY: No dysuria or hematuria. MUSCULOSKELETAL: Reports normal range of motion. SKIN: No rashes. No jaundice. ENDOCRINE: No chills, fevers. No excessive weight gain or loss. No polydipsia or polyuria. PSYCHIATRIC: Unremarkable. NEUROLOGY: No change in mental status. Denies dizziness, headache. ENT: Vision unremarkable. CONSTITUTIONAL: No recent weight loss. No fever, chills, night sweats. Past Medical History Past Medical History: GERD/Reflux, Hyperlipidemia, Hypertension Additional Past Medical History / Comment(s): restless leg, back pain History of Any Multi-Drug Resistant Organisms: None Reported Past Surgical History: Back Surgery, Cholecystectomy, Hernia Repair, Orthopedic Surgery, Tubal Ligation Additional Past Surgical History / Comment(s): right shoulder/wrist Past Anesthesia/Blood Transfusion Reactions: No Reported Reaction Past Psychological History: No Psychological Hx Reported Smoking Status: Never smoker Past Alcohol Use History: Occasional Past Drug Use History: None Reported - Past Family History Mother Family Medical History: Cancer Additional Family Medical History / Comment(s): Mother had rectal CA Father Family Medical History: CVA/TIA Medications and Allergies Home Medications Medication Instructions Recorded Confirmed Type amLODIPine [Norvasc] 5 mg PO DAILY 06/21/20 02/10/22 History rOPINIRole HCL [Requip] 0.5 mg PO HS 06/21/20 02/10/22 History Baclofen [Lioresal] 10 mg PO HS 02/10/22 02/10/22 History Famotidine [Pepcid] 40 mg PO DAILY 02/10/22 02/10/22 History Ibuprofen [Motrin] 800 mg PO Q8H PRN 02/10/22 02/10/22 History Multivitamins, Thera [Multivitamin 1 tab PO DAILY 02/10/22 02/10/22 History (formulary)] Rosuvastatin [Crestor] 10 mg PO HS 02/10/22 02/10/22 History Allergies Allergy/AdvReac Type Severity Reaction Status Date / Time Sulfa (Sulfonamide Allergy Anaphylaxis Verified 02/10/22 06:48 Antibiotics) Physical Exam Vitals: Vital Signs Temp Pulse Pulse Resp BP BP Pulse Ox 02/10/22 08:32 97.8 F 76 16 124/76 94 L 02/10/22 06:33 98 F 78 19 133/77 98 02/10/22 03:26 97.9 F 91 18 175/83 97 Intake and Output 02/09/22 02/10/22 02/10/22 22:59 06:59 14:59 Other: Weight 86.183 kg General appearance: The patient is alert, oriented, appears in no acute distress. HET: Head is normocephalic and atraumatic. Conjunctiva pink. Sclera anicteric. Neck: Supple without lymphadenopathy. Trachea midline. Heart: S1 S2. Regular rate and rhythm. Lungs: Clear to auscultation. Abdomen: Soft, nontender, nondistended with bowel sounds. No guarding or rigidity. Skin: No rashes. No jaundice. Extremities: Normal skin color and turgor. No pedal edema. Neurological: No focal deficits. Alert and oriented x3. Results CBC & Chem 7: 02/10/22 04:08 02/10/22 04:08 Labs: Abnormal Lab Results - Last 24 Hours (Table) 02/10/22 02/10/22 Range/Units 04:08 04:08 D-Dimer 1.18 H (<0.60) mg/L FEU Glucose 104 H (74-99) mg/dL Lipase >05318 H (23-300) U/L Comments: CT abdomen and pelvis with findings of fat stranding and fluid around the pancreas consistent with acute pancreatitis. Fluid increased compared to old exam. Colonic diverticulosis without diverticulitis. Atelectasis at the lung bases increased compared to old exam subphrenic calcification superior-lateral right lobe of the liver is stable compared to old exam and consistent with benign disease Chest CT angiogram: Cardiomegaly. No evidence of pulmonary embolism. Mild atelectasis at the lung bases. No suspicious pulmonary mass Assessment and Plan (1) Acute pancreatitis Narrative/Plan: [id number] female who presented to the emergency department this morning with complaints of chest pain/epigastric pain was found to have a lipase greater than 20,000. CT abdomen and pelvis was consistent with the increased Jordan. Patient has prior history of acute pancreatitis first diagnosed in 2019. At that time she had autoimmune workup which was negative. No former history of alcoholism or current history of alcohol abuse. She had a repeat episode in December of this year when she was in [place]. Again no new medications no alcohol use. Patient is scheduled March [address] [facility] for EUS. We will continue with symptomatic treatment including aggressive hydration, pain me dication, and antiemetics as needed. Current Visit: Yes Status: Acute Code(s): K85.90 - ACUTE PANCREATITIS WITHOUT NECROSIS OR INFECTION, UNSP SNOMED Code(s): 705186510 Plan: 1. Continue symptomatic and supportive care 2. Aggressive IV hydration 3. Pain medications as needed 4. Encourage ambulation 5. Nothing by mouth except medicaitons, ice chips and popsicles. Advance diet as tolerated 6. Repeat CMP, lipase in morning 7. Patient to follow-up with [facility] is scheduled March 01 for EUS Thank you for this consultation. Anticipate patient to be hospitalized for the next 2-3 days for improvement in the pain, and lipase. Thank you for allowing us to participate in the care of the patient, the GI service will sign off, gastroenterology will not be available at the hospital this weekend and through next week. If further evaluation by gastroenterology is required the patient will need transfer as per the primary team's discretion. Dr. Megan Guo I agree with the dictator's note, documented as a scribe by Alyssia Barney.
--- NOTE | 2022-02-10 12:37 | P.HPIM ---
History of Present Illness H&P Date: 02/10/22 This is a 66-year-old female presents to the with complaints of shortness of breath. She is also having severe epigastric pain, rated 10 out of 10 on admission. D-Dimer found to be 1.18 on admission and lipase >20,000. All other labs unremarkable, troponin negative. She underwent chest CTA which was negative for pulmonary embolism there is mild atelectasis at the lung base. Abdominal pelvis CT completed showing fat stranding and fluid around the pancreas consistent with acute pancreatitis, there is colonic diverticulosis without diverticulitis. Atelectasis at lung bases increase compared to old exam, there is also subphrenic calcification in the superior lateral right lobe of the liver which is stable from previous exam. Patient is receiving popsicles and ice chips only, she did receive a 2 L fluid bolus and receiving fluids at 150 mL per hour with normal saline, she will see GI services today. He does have a history of hypertension and lipidemia, GERD, restless leg chronic back pain with surgery, occasional alcohol use. She is afebrile, blood pressure 124/76, 94% room air. REVIEW OF SYSTEMS: CONSTITUTIONAL: No fever, no malaise, no fatigue. HEENT: No recent visual problems or hearing problems. Denied any sore throat. CARDIOVASCULAR: No chest pain, orthopnea, PND, no palpitations, no syncope. PULMONARY: No shortness of breath, no cough, no hemoptysis. GASTROINTESTINAL: No diarrhea, no vomiting. Reports nausea epigastric abominal pain 7/10 at rest. NEUROLOGICAL: No headaches, no weakness, no numbness. HEMATOLOGICAL: Denies any bleeding or petechiae. GENITOURINARY: Denies any burning micturition, frequency, or urgency. MUSCULOSKELETAL/RHEUMATOLOGICAL: Denies any joint pain, swelling, or any muscle pain. ENDOCRINE: Denies any polyuria or polydipsia. The rest of the 14-point review of systems is negative. PHYSICAL EXAMINATION: GENERAL: The patient is alert and oriented x3, not in any acute distress. Well developed, well nourished. HEENT: Pupils are round and equally reacting to light. EOMI. No scleral icterus. No conjunctival pallor. Normocephalic, atraumatic. No pharyngeal erythema. No thyromegaly. CARDIOVASCULAR: S1 and S2 present. No murmurs, rubs, or gallops. PULMONARY: Chest is clear to auscultation, no wheezing or crackles. ABDOMEN: Soft, tender, nondistended, normoactive bowel sounds. No palpable organomegaly. MUSCULOSKELETAL: No joint swelling or deformity. EXTREMITIES: No cyanosis, clubbing, or pedal edema. NEUROLOGICAL: Gross neurological examination did not reveal any focal deficits. SKIN: No rashes. Assessment and Plan Asessment Acute pancreatitis with lipase >20,000, patient will be hydrated and evaluated by GI services History of gastroesophageal reflux disease started on IV protonix, does take omeprazole at home Hypertension resumed on home medication Hyperlipidemia resumed on home medication History of restless leg syndrome maintained on requip which has been resumed History of back pain with surgery Obese GI Prophylaxis DVT Prophylaxis Full Code Plan Continue on IV fluids, ice chips Repeat lipase Lipid panel ordered Continue with pain medication and antiemetics GI consultation Outpatient follow up with GI specialist at [facility] March 01 as previously s cheduled The impression and plan of care has been dictated by Kayy Kilpatrick Nurse Practitioner as directed. Dr. Rekha MD I have performed a history and physical examination and medical decision making of this patient, discussed the same with the dictator, and agree with the dictators assessment and plan as written, documented as a scribe. Based on total visit time, I have performed more than 50% of this visit. Past Medical History Past Medical History: GERD/Reflux, Hyperlipidemia, Hypertension Additional Past Medical History / Comment(s): restless leg, back pain History of Any Multi-Drug Resistant Organisms: None Reported Past Surgical History: Back Surgery, Cholecystectomy, Hernia Repair, Orthopedic Surgery, Tubal Ligation Additional Past Surgical History / Comment(s): right shoulder/wrist Past Anesthesia/Blood Transfusion Reactions: No Reported Reaction Past Psychological History: No Psychological Hx Reported Smoking Status: Never smoker Past Alcohol Use History: Occasional Past Drug Use History: None Reported - Past Family History Mother Family Medical History: Cancer Additional Family Medical History / Comment(s): Mother had rectal CA Father Family Medical History: CVA/TIA Medications and Allergies Home Medications Medication Instructions Recorded Confirmed Type amLODIPine [Norvasc] 5 mg PO DAILY 06/21/20 02/10/22 History rOPINIRole HCL [Requip] 0.5 mg PO HS 06/21/20 02/10/22 History Baclofen [Lioresal] 10 mg PO HS 02/10/22 02/10/22 History Famotidine [Pepcid] 40 mg PO DAILY 02/10/22 02/10/22 History Ibuprofen [Motrin] 800 mg PO Q8H PRN 02/10/22 02/10/22 History Multivitamins, Thera [Multivitamin 1 tab PO DAILY 02/10/22 02/10/22 History (formulary)] Rosuvastatin [Crestor] 10 mg PO HS 02/10/22 02/10/22 History Allergies Allergy/AdvReac Type Severity Reaction Status Date / Time Sulfa (Sulfonamide Allergy Anaphylaxis Verified 02/10/22 06:48 Antibiotics) Physical Exam Vitals: Vital Signs Temp Pulse Pulse Resp BP BP Pulse Ox 02/10/22 08:32 97.8 F 76 16 124/76 94 L 02/10/22 06:33 98 F 78 19 133/77 98 02/10/22 03:26 97.9 F 91 18 175/83 97 Intake and Output 02/09/22 02/10/22 02/10/22 22:59 06:59 14:59 Other: Weight 86.183 kg Results CBC & Chem 7: 02/10/22 04:08 02/10/22 04:08 Labs: Abnormal Lab Results - Last 24 Hours (Table) 02/10/22 02/10/22 Range/Units 04:08 04:08 D-Dimer 1.18 H (<0.60) mg/L FEU Glucose 104 H (74-99) mg/dL Lipase >74170 H (23-300) U/L Assessment and Plan Time with Patient: Less than 30
[2022-02-10] MEDS: ONDANSETRON 4 MG/2 ML VIAL IVP PRN ×2 (13:51→21:20)
[2022-02-10 18:22] LABS: Chol/HDL Ratio 2.87 Ratio; LDL Cholesterol,Calculated 94.1 mg/dL (0.0-131.0)
[2022-02-10] MEDS: BACLOFEN 10 MG TAB PO SCH (20:05)
[2022-02-10] MEDS: ATORVASTATIN 20 MG TAB PO SCH (20:05)
[2022-02-11] MEDS: HYDROmorphone 1 MG/ML 1 ML SYRINGE IVP PRN (01:33)
[2022-02-11] MEDS: SODIUM CHLORIDE 0.9% 1,000 ML IV SCH ×3 (04:59→20:09)
[2022-02-11] MEDS: amLODIPine 5 MG TAB PO SCH (08:03)
[2022-02-11] MEDS: PANTOPRAZOLE 40 MG/10 ML VIAL IV SCH ×2 (08:04→20:11)
[2022-02-11] MEDS: ONDANSETRON 4 MG/2 ML VIAL IVP PRN ×2 (08:07→17:16)
[2022-02-11 09:21] LABS: Basophils # (A) 0.03 X 10*3/uL (0.00-0.10); Basophils % (A) 0.3 %; Eosinophils # (A) 0.07 X 10*3/uL (0.04-0.35); Eosinophils % (A) 0.8 %; HCT 38.8 % (37.2-46.3); HGB 12.2 g/dL (12.0-15.0); Immature Grans, Automated 0.6 %; Lymphocytes # (A) 1.37 X 10*3/uL (0.90-5.00); Lymphocytes % (A) 15.2 %; MCH 27.9 pg (27.0-32.0); MCHC 31.4 g/dL (32.0-37.0); MCV 88.8 fL (80.0-97.0); Mean Platelet Volume 9.5 fL (9.5-12.2); Monocytes # (A) 0.59 X 10*3/uL (0.20-1.00); Monocytes % (A) 6.6 %; NRBC Per 100 WBC 0 /100 WBCS (0.0-0.0); Neutrophils # (A) 6.89 X 10*3/uL (1.80-7.70); Neutrophils % (A) 76.5 %; Platelet Count 264 X 10*3/uL (140-440); RBC 4.37 X 10*6/uL (4.10-5.20); RDW 14.5 % (11.5-14.5)
[2022-02-11] MEDS ORDERED: KETOROLAC 15 MG/ML 1 ML VIAL IVP PRN (09:46)
[2022-02-11 10:21] LABS: BUN/Creat Ratio 14.74 Ratio (12.00-20.00); Globulin 2.3 g/dL (1.6-3.3)
[2022-02-11 10:22] LABS: African American GFR (CKD) 93.4 (60.0-200.0); Albumin 3.8 g/dL (3.8-4.9); Albumin/Globulin Ratio 1.67 (1.60-3.17); Anion Gap 9.6 mmol/L (10.00-18.00); Blood Urea Nitrogen 11.2 mg/dL (9.0-27.0); Calcium 8.5 mg/dL (8.7-10.3); Carbon Dioxide 22.5 mmol/L (20.0-27.5); Non-African American GFR(CKD) 80.6 (60.0-200.0); Potassium 4.7 mmol/L (3.5-5.5); Total Bilirubin 0.3 mg/dL (0.30-1.20); Total Protein 6.1 g/dL (6.2-8.2)
[2022-02-11] MEDS: METOCLOPRAMIDE 5 MG/ML 2 ML VIAL IVP PRN ×2 (14:03→20:12)
--- NOTE | 2022-02-11 15:10 | P.PN ---
Subjective Progress Note Date: 02/11/22 This is a 66-year-old female presents to the with complaints of shortness of breath. She is also having severe epigastric pain, rated 10 out of 10 on admission. D-Dimer found to be 1.18 on admission and lipase >20,000. All other labs unremarkable, troponin negative. She underwent chest CTA which was negative for pulmonary embolism there is mild atelectasis at the lung base. Abdominal pelvis CT completed showing fat stranding and fluid around the pancreas consistent with acute pancreatitis, there is colonic diverticulosis without diverticulitis. Atelectasis at lung bases increase compared to old exam, there is also subphrenic calcification in the superior lateral right lobe of the liver which is stable from previous exam. Patient is receiving popsicles and ice chips only, she did receive a 2 L fluid bolus and receiving fluids at 150 mL per hour with normal saline, she will see GI services today. He does have a history of hypertension and lipidemia, GERD, restless leg chronic back pa in with surgery, occasional alcohol use. She is afebrile, blood pressure 124/76, 94% room air. 02/11/2022 Patient is seen in follow-up this morning and is being closely monitored with pancreatitis. Patient is maintained on IV fluids and will continue and labs within normal limits today. Patient was evaluated by GI and recommending continuing current medication regimen along with outpatient follow-up with Chad Hayes at her scheduled appointment. Patient was on popsicles and ice chips although having increasing abdominal pain and continued nausea and vomiting and will make the patient strict nothing by mouth and also add Reglan in addition to Zofran and continue with current pain control. Follow-up lipase this morning significantly improved at 1061 from 11,252 yesterday and will repeat labs in 24 hours. Encouraged increased activity as tolerated and continue with bowel rest for now. Possible clear liquids tomorrow. Patient is afebrile and denies chest pain or shortness of breath. Review of systems: Constitutional: No reports of fatigue, fever, or chills Cardiovascular: No reports of chest pain or palpitations Respiratory: No reports of shortness of breath or cough GI: reports of nausea and vomiting, no reports of diarrhea : No reports of dysuria or retention Neurovascular: No reports of weakness or numbness All medications have been reviewed PHYSICAL EXAMINATION: GENERAL: The patient is alert and oriented x3, not in any acute distress. Well developed, well nourished. HEENT: Pupils are round and equally reacting to light. EOMI. No scleral icterus. No conjunctival pallor. Normocephalic, atraumatic. No pharyngeal erythema. No thyromegaly. CARDIOVASCULAR: S1 and S2 muffled PULMONARY: Diminished breath sounds bilaterally with no wheezing or crackles. ABDOMEN: Soft, tender, non-distended, normoactive bowel sounds. No palpable organomegaly. MUSCULOSKELETAL: No joint swelling or deformity. EXTREMITIES: No cyanosis, clubbing, or pedal edema. NEUROLOGICAL: Gross neurological examination did not reveal any focal deficits. SKIN: No rashes. Asessment: Acute pancreatitis with lipase >20,000, on admission History of gastroesophageal reflux disease Hypertension Hyperlipidemia History of restless leg syndrome History of back pain with surgery Obese GI Prophylaxis DVT Prophylaxis Full Code Plan: Continue on IV fluids, strict nothing by mouth tonight with bowel rest and possible clear liquids or ice chips tomorrow and will repeat labs Repeat labs in a.m. Continue with pain medication and antiemetics and have ordered Reglan GI evaluated the patient recommending fluid hydration and just ice chips and popsicles although patient having increasing abdominal pain associated with nausea and vomiting today and will make strictly nothing by mouth Outpatient follow up with GI specialist at [facility] March 01 as previously scheduled Possible discharge in 24-48 hours The impression and plan of care has been dictated by Edith Ortiz, Nurse Practitioner as directed. Dr. Darshan MD I have performed a history and examination and MDM of this patient, discussed the same with the dictator, and agree with the dictator's assessment and plan as written ,documented as a scribe. Based on total visit time, I have performed more than 50% of the visit. Objective - Vital Signs Vital signs: Vital Signs Temp 98.1 F 02/11/22 04:06 Pulse 93 02/11/22 04:06 Resp 18 02/11/22 04:06 BP 125/75 02/11/22 04:06 Pulse Ox 94 L 02/11/22 04:06 FiO2 Intake & Output 02/10/22 02/11/22 02/11/22 18:59 06:59 18:59 Intake Total 1500 1200 Balance 1500 1200 Weight 86.183 kg Intake: Intake, IV Titration 1500 1200 Amount Sodium Chloride 0.9% 1, 1200 000 ml @ 100 mls/hr IV . Q10H [facility] Rx#:[id number] Sodium Chloride 0.9% 1, 1500 000 ml @ 125 mls/hr IV . Q8H [facility] Rx#:[id number] Other: Voiding Method Toilet # Voids 3 - Labs CBC & Chem 7: 02/11/22 06:25 02/11/22 06:25 Labs: Abnormal Lab Results - Last 24 Hours (Table) 02/10/22 02/10/22 02/11/22 Range/Units 04:08 12:55 06:25 MCHC 31.4 L (32.0-37.0) g/dL Immature Gran # 0.05 H (0.00-0.04) X 10*3/uL HDL Cholesterol 65.50 H (40.00-60.00) mg/dL Lipase 19236 H (23-300) U/L
[2022-02-11] MEDS: ATORVASTATIN 20 MG TAB PO SCH (20:10)
[2022-02-11] MEDS: BACLOFEN 10 MG TAB PO SCH (20:10)
[2022-02-11] MEDS: HYDROmorphone 0.5 MG/0.5 ML SYRINGE IVP PRN (20:13)
[2022-02-12] MEDS: SODIUM CHLORIDE 0.9% 1,000 ML IV SCH ×3 (04:04→20:21)
[2022-02-12] MEDS: ONDANSETRON 4 MG/2 ML VIAL IVP PRN ×2 (04:04→17:20)
[2022-02-12] MEDS: HYDROmorphone 0.5 MG/0.5 ML SYRINGE IVP PRN (04:05)
[2022-02-12] MEDS: PANTOPRAZOLE 40 MG/10 ML VIAL IV SCH ×2 (08:19→20:21)
[2022-02-12] MEDS: amLODIPine 5 MG TAB PO SCH (08:20)
[2022-02-12] MEDS: METOCLOPRAMIDE 5 MG/ML 2 ML VIAL IVP PRN (08:20)
[2022-02-12 14:42] LABS: Basophils # (A) 0.1 k/uL (0-0.2); Basophils % (A) 1 %; Eosinophils # (A) 0.2 k/uL (0-0.7); Eosinophils % (A) 2 %; HCT 39.1 % (34.0-46.0); HGB 11.9 gm/dL (11.4-16.0); Lymphocytes # (A) 1.4 k/uL (1.0-4.8); Lymphocytes % (A) 17 %; MCH 27.6 pg (25.0-35.0); MCHC 30.6 g/dL (31.0-37.0); MCV 90.4 fL (80.0-100.0); Mean Platelet Volume 7.5; Monocytes # (A) 0.5 k/uL (0-1.0); Monocytes % (A) 6 %; Neutrophils # (A) 6.3 k/uL (1.3-7.7); Neutrophils % (A) 74 %; Platelet Count 259 k/uL (150-450); RBC 4.32 m/uL (3.80-5.40); RDW 13.6 % (11.5-15.5); WBC 8.5 k/uL (3.8-10.6)
[2022-02-12 14:44] LABS: African American GFR (CKD) >90 (>60 ml/min/1.73 sqM); Amylase 172 U/L (30-110); Anion Gap 5 mmol/L; Blood Urea Nitrogen 11 mg/dL (7-17); Calcium 8.2 mg/dL (8.4-10.2); Carbon Dioxide 25 mmol/L (22-30); Chloride 108 mmol/L (98-107); Glucose 92 mg/dL (74-99); Lipase 784 U/L (23-300); Non-African American GFR(CKD) >90 (>60 ml/min/1.73 sqM); Potassium 4.2 mmol/L (3.5-5.1); Sodium 138 mmol/L (137-145)
[2022-02-12] MEDS: ATORVASTATIN 20 MG TAB PO SCH (20:21)
[2022-02-12] MEDS: BACLOFEN 10 MG TAB PO SCH (20:21)
[2022-02-12] MEDS ORDERED: TEMAZEPAM 7.5 MG CAP PO PRN (21:00)
[2022-02-12] MEDS ORDERED: ACETAMINOPHEN TAB 325 MG TAB PO PRN (21:04)
[2022-02-12] MEDS ORDERED: MELATONIN 5 MG TABLET PO PRN (21:06)
[2022-02-12 21:11] VITALS: RESP 16
[2022-02-13 04:28] VITALS: BP 128/67; PULSE 83; TEMP 98.2
[2022-02-13] MEDS: SODIUM CHLORIDE 0.9% 1,000 ML IV SCH (04:42)
[2022-02-13] MEDS: PANTOPRAZOLE 40 MG/10 ML VIAL IV SCH (08:59)
[2022-02-13] MEDS: amLODIPine 5 MG TAB PO SCH (09:00)
--- NOTE | 2022-02-13 09:55 | P.PN ---
Subjective Progress Note Date: 02/12/22 This is a 66-year-old female presents to the with complaints of shortness of breath. She is also having severe epigastric pain, rated 10 out of 10 on admission. D-Dimer found to be 1.18 on admission and lipase >20,000. All other labs unremarkable, troponin negative. She underwent chest CTA which was negative for pulmonary embolism there is mild atelectasis at the lung base. Abdominal pelvis CT completed showing fat stranding and fluid around the pancreas consistent with acute pancreatitis, there is colonic diverticulosis without diverticulitis. Atelectasis at lung bases increase compared to old exam, there is also subphrenic calcification in the superior lateral right lobe of the liver which is stable from previous exam. Patient is receiving popsicles and ice chips only, she did receive a 2 L fluid bolus and receiving fluids at 150 mL per hour with normal saline, she will see GI services today. He does have a history of hypertension and lipidemia, GERD, restless leg chronic back pa in with surgery, occasional alcohol use. She is afebrile, blood pressure 124/76, 94% room air. 02/11/2022 Patient is seen in follow-up this morning and is being closely monitored with pancreatitis. Patient is maintained on IV fluids and will continue and labs within normal limits today. Patient was evaluated by GI and recommending continuing current medication regimen along with outpatient follow-up with Chad Hayes at her scheduled appointment. Patient was on popsicles and ice chips although having increasing abdominal pain and continued nausea and vomiting and will make the patient strict nothing by mouth and also add Reglan in addition to Zofran and continue with current pain control. Follow-up lipase this morning significantly improved at 1061 from 11,252 yesterday and will repeat labs in 24 hours. Encouraged increased activity as tolerated and continue with bowel rest for now. Possible clear liquids tomorrow. Patient is afebrile and denies chest pain or shortness of breath. 02/12/2022 Patient was seen in follow-up and was nothing by mouth overnight and reports her vomiting and nausea has improved and abdominal pain has resolved and asking to be discharged home. Awaiting labs as [facility] is down and discussed with the patient about starting slowly with water and monitoring for any further increasing abdominal pain and patient is agreeable to stay overnight for ob servation with discharge in the morning. Patient denies any chest pain or shortness of breath. Patient is afebrile. Will follow-up with repeat labs. Review of systems: Constitutional: No reports of fatigue, fever, or chills Cardiovascular: No reports of chest pain or palpitations Respiratory: No reports of shortness of breath or cough GI: No reports of nausea and vomiting, no reports of diarrhea : No reports of dysuria or retention Neurovascular: No reports of weakness or numbness All medications have been reviewed PHYSICAL EXAMINATION: GENERAL: The patient is alert and oriented x3, not in any acute distress. Well developed, well nourished. HEENT: Pupils are round and equally reacting to light. EOMI. No scleral icterus. No conjunctival pallor. Normocephalic, atraumatic. No pharyngeal erythema. No thyromegaly. CARDIOVASCULAR: S1 and S2 muffled PULMONARY: Diminished breath sounds bilaterally with no wheezing or crackles. ABDOMEN: Soft, non-tender, non-distended, normoactive bowel sounds. No palpable organomegaly. MUSCULOSKELETAL: No joint swelling or deformity. EXTREMITIES: No cyanosis, clubbing, or pedal edema. NEUROLOGICAL: Gross neurological examination did not reveal any focal deficits. SKIN: No rashes. Asessment: Acute pancreatitis with lipase >20,000, on admission History of gastroesophageal reflux disease Hypertension Hyperlipidemia History of restless leg syndrome History of back pain with surgery Obese GI Prophylaxis DVT Prophylaxis Full Code Plan: Continue on IV fluids, patient tolerated nothing by mouth and reports abdominal pain has resolved and will start slowly with water and ice chips and monitor o vernight for any further abdominal pain and tolerance to diet and start clear liquids if tolerating water this evening. Lipase trending down and patient does have a follow-up appointment with GI spe ciajulia on March 01 and encourage the patient to keep. Continue with pain medication and antiemetics and have ordered Reglan Outpatient follow up with GI specialist at [facility] March 01 as previously scheduled This patient's abdominal pain is improved and no further episodes of nausea or vomiting will consider discharge in a.m. and patient is agreeable to this. Possible discharge in 24 hours The impression and plan of care has been dictated by Edith Ortiz, Nurse Practitioner as directed. Dr. Darshan MD I have performed a history and examination and MDM of this patient, discussed the same with the dictator, and agree with the dictator's assessment and plan as written ,documented as a scribe. Based on total visit time, I have performed more than 50% of the visit. Objective - Vital Signs Vital signs: Vital Signs Temp 98.2 F 02/12/22 04:08 Pulse 83 02/12/22 04:08 Resp 18 02/12/22 04:08 BP 136/70 02/12/22 04:08 Pulse Ox 92 L 02/12/22 04:08 FiO2 Intake & Output 02/11/22 02/12/22 02/12/22 18:59 06:59 18:59 Intake Total 1400 1500 Balance 1400 1500 Intake: Intake, IV Titration 1400 1500 Amount Sodium Chloride 0.9% 1, 1400 1500 000 ml @ 125 mls/hr IV . Q8H [facility] Rx#:[id number] Other: Voiding Method Toilet - Labs CBC & Chem 7: 02/12/22 06:29 02/12/22 06:29 Labs: Abnormal Lab Results - Last 24 Hours (Table) 02/11/22 Range/Units 06:25 Anion Gap 9.60 L (10.00-18.00) mmol/L Calcium 8.5 L (8.7-10.3) mg/dL Total Protein 6.1 L (6.2-8.2) g/dL Lipase 1061 H (14-63) U/L
--- NOTE | 2022-02-18 15:14 | P.DS ---
Providers Date of admission: 02/10/22 05:27 Expected date of discharge: 02/13/22 Attending physician: Manjeet Sexton Consults: 02/10/22 05:28 Consult Physician Routine Consulting Provider: Dasha Guo Consult Reason/Comments: pancreatitis,known Do you want consulting provider notified?: Yes Primary care physician: Katherine Byrd Hospital Course: Final diagnosis Acute pancreatitis with lipase >20,000, on admission History of gastroesophageal reflux disease Hypertension Hyperlipidemia History of restless leg syndrome History of back pain with surgery Obese GI Prophylaxis DVT Prophylaxis Full Code Discharge disposition Patient is being discharged in a stable condition with guarded prognosis to home. Patient will follow-up with Dr. Byrd in the outpatient setting upon discharge. Patient is to follow-up with her GI at [facility] at scheduled appointment as scheduled. Total time taken is greater than 35 minutes. Hospital course This is a 66-year-old female who was recently admitted for acute pancreatitis with lipase level being over 20,000. Patient does have a scheduled outpatient follow-up with [facility] GI specialist beginning of February and recommend continue with keeping this appointment. Patient has improved and recommend clear liquid diet for the next 2 days and slowly advancing to full liquids and then low fiber. Patient also encouraged to follow-up with primary care provider on discharge and recommend repeat labs and a prescription was provided. Patient reports to no abdominal pain and is adamant about going home today. Currently no reports of chest pain, shortness of breath, or palpitations. Patient is afebrile. No reports of nausea or vomiting and patient is tolerating diet. Patient will be discharged home today. On exam vital signs are stable. Cardio S1, S2 are muffled. Respiratory system shows diminished breath sounds at the bases with no wheezing or rhonchi noted. Abdomen is soft and obese, and nontender. Nervous system shows no focal deficits. Please refer to medication reconciliation sheet for a list of medications. The impression and plan of care has been dictated by Edith Ortiz, Nurse Practitioner as directed. Dr. Darshan MD I have performed a history and examination and MDM of this patient, discussed the same with the dictator, and agree with the dictator's assessment and plan as written ,documented as a scribe. Based on total visit time, I have performed more than 50% of the visit. Patient Condition at Discharge: Stable Plan - Discharge Summary Discharge Rx Participant: No New Discharge Prescriptions: New Pantoprazole [Protonix] 40 mg PO DAILY 14 Days #14 tab Metoclopramide [Reglan] 5 mg PO TID #30 tab Acetaminophen Tab [Tylenol] 325 mg PO Q4HR PRN #60 tab PRN Reason: Fever and/ or MILD Pain Ondansetron Odt [Zofran Odt] 4 mg PO Q8HR PRN #20 tab PRN Reason: Nausea Continue rOPINIRole HCL [Requip] 0.5 mg PO HS amLODIPine [Norvasc] 5 mg PO DAILY Multivitamins, Thera [Multivitamin (formulary)] 1 tab PO DAILY Famotidine [Pepcid] 40 mg PO DAILY Baclofen [Lioresal] 10 mg PO HS Rosuvastatin [Crestor] 10 mg PO HS Ibuprofen [Motrin] 800 mg PO Q8H PRN PRN Reason: Pain Discharge Medication List amLODIPine [Norvasc] 5 mg PO DAILY 06/21/20 [History] rOPINIRole HCL [Requip] 0.5 mg PO HS 06/21/20 [History] Baclofen [Lioresal] 10 mg PO HS 02/10/22 [History] Famotidine [Pepcid] 40 mg PO DAILY 02/10/22 [History] Ibuprofen [Motrin] 800 mg PO Q8H PRN 02/10/22 [History] Multivitamins, Thera [Multivitamin (formulary)] 1 tab PO DAILY 02/10/22 [History] Rosuvastatin [Crestor] 10 mg PO HS 02/10/22 [History] Acetaminophen Tab [Tylenol] 325 mg PO Q4HR PRN #60 tab 02/13/22 [Rx] Metoclopramide [Reglan] 5 mg PO TID #30 tab 02/13/22 [Rx] Ondansetron Odt [Zofran Odt] 4 mg PO Q8HR PRN #20 tab 02/13/22 [Rx] Pantoprazole [Protonix] 40 mg PO DAILY 14 Days #14 tab 02/13/22 [Rx] Follow up Appointment(s)/Referral(s): Katherine Byrd MD [Primary Care Provider] - 02/18/22 11:45 am (February 18 11:45) Ambulatory/Diagnostic Orders: Comprehensive Metabolic Panel [LAB.AMB] Time Frame: 3 Days, Location: None Selected Patient Instructions/Handouts: Metoclopramide (By mouth), Ondansetron (By mouth), Pantoprazole (By mouth) Activity/Diet/Wound Care/Special Instructions: Activity Limited until follow-up Follow-up with primary care provider on discharge Follow-up with GI specialist out of [facility] on your scheduled appointment Continue with clear liquid diet for the next 1-2 days, then slowly advance to full liquid for 1-2 days, then low fiber Continue taking medications as prescribed Recommend repeat labs next week Discharge Disposition: HOME SELF-CARE
== END 2022-02-13 10:33 | disposition home or self-care (01) | DRG 439 ==
LOC: EC 03:25 → 5NMEDONC 05:27
PROVIDERS: ADMIT Hospitalist; ATTEND Hospitalist
DX: K85.90 Acute pancreatitis without necrosis or infection, unspecified (principal); J98.11 Atelectasis; E66.9 Obesity, unspecified; E78.5 Hyperlipidemia, unspecified; K21.9 Gastro-esophageal reflux disease without esophagitis; I10 Essential (primary) hypertension; M54.9 Dorsalgia, unspecified; G89.29 Other chronic pain; G25.81 Restless legs syndrome; K57.30 Diverticulosis of large intestine without perforation or abscess without bleeding; Z68.31 Body mass index [BMI] 31.0-31.9, adult; Z79.899 Other long term (current) drug therapy; Z90.49 Acquired absence of other specified parts of digestive tract; Z87.19 Personal history of other diseases of the digestive system; Z98.51 Tubal ligation status; Z98.890 Other specified postprocedural states; Z88.2 Allergy status to sulfonamides; Z80.0 Family history of malignant neoplasm of digestive organs; Z82.3 Family history of stroke
CPT/HCPCS: 36415; 71275; 74177; 80048; 80053; 80061; 82150; 83690; 83735; 83880; 84484; 85025; 85379; 85610; 85730; 93005; 96361; 96374; 96375; 99285

== ENCOUNTER → 2022-02-27 | Outpatient (CLI) | payer MEDICARE | END | disposition home or self-care (01) | LOC: LABWHC1 07:14 | PROVIDERS: ATTEND Family Medicine | DX: K86.1 Other chronic pancreatitis (principal) | CPT/HCPCS: 36415; 83690 ==

== ENCOUNTER 2022-07-10 08:21 | Emergency (ER) | payer MEDICARE ==
[2022-07-10 08:29] VITALS: RESP 18; TEMP 98.4
[2022-07-10] MEDS ORDERED: ONDANSETRON 4 MG/2 ML VIAL IVP STA (08:46)
[2022-07-10] MEDS ORDERED: SODIUM CHLORIDE 0.9% 1,000 ML IV STA (08:46)
[2022-07-10] MEDS ORDERED: HYDROmorphone 0.5 MG/0.5 ML SYRINGE IVP STA (08:46)
[2022-07-10 09:11] LABS: Basophils % (A) 0 %; Eosinophils # (A) 0.2 k/uL (0-0.7); Eosinophils % (A) 2 %; HGB 13.7 gm/dL (11.4-16.0); Lymphocytes # (A) 2.3 k/uL (1.0-4.8); Lymphocytes % (A) 17 %; MCH 28.7 pg (25.0-35.0); MCHC 34.1 g/dL (31.0-37.0); MCV 83.9 fL (80.0-100.0); Mean Platelet Volume 7.4; Monocytes # (A) 0.7 k/uL (0-1.0); Monocytes % (A) 5 %; Neutrophils # (A) 10.1 k/uL (1.3-7.7); Neutrophils % (A) 75 %; Platelet Count 267 k/uL (150-450); RBC 4.77 m/uL (3.80-5.40); RDW 13.6 % (11.5-15.5); WBC 13.5 k/uL (3.8-10.6)
--- NOTE | 2022-07-10 09:16 | ED ---
Abdominal Pain HPI - General Chief Complaint: Abdominal Pain Stated Complaint: post op pain, poss pancreatitis Time Seen by Provider: 07/10/22 08:40 Source: patient, family, RN notes reviewed Mode of arrival: ambulatory Limitations: no limitations - History of Present Illness Initial Comments: This is a 66-year-old female who presents to the emergency department with abdominal pain. 2 days ago at [facility], she had a pancreatic stent placed because she had been getting recurrent bouts of pancreatitis prior to this procedure. They did go through the esophagus and she has no external incisions. She was told that following the surgery, she could have an acute bout of pancreatitis. States that she did well yesterday, however today, she states th at she started to develop diffuse abdominal pain with nausea. She is worried that she may have pancreatitis again, as symptoms feel very similar. Denies any fevers, chills, sore throat, cough, dyspnea, chest pain, palpitations, vomiting, diarrhea, back pain, or headaches. MD Complaint: abdominal pain Location: LUQ, epigastric Associated Symptoms: nausea - Related Data Home Medications Medication Instructions Recorded Confirmed amLODIPine [Norvasc] 5 mg PO DAILY 06/21/20 07/10/22 rOPINIRole HCL [Requip] 0.5 mg PO HS 06/21/20 07/10/22 Baclofen [Lioresal] 10 mg PO BID PRN 02/10/22 07/10/22 Simvastatin [Zocor] 20 mg PO HS 07/10/22 07/10/22 Previous Rx's Medication Instructions Recorded Pantoprazole [Protonix] 40 mg PO DAILY 14 Days #14 tab 02/13/22 HYDROcodone/APAP 7.5-325MG [[place] 1 tab PO Q6HR PRN 3 Days #12 tab 07/10/22 7.5-325] Ondansetron Odt [Zofran Odt] 4 mg PO Q8HR PRN #20 tab 07/10/22 Allergies Allergy/AdvReac Type Severity Reaction Status Date / Time Sulfa (Sulfonamide Allergy Rash/Hives Verified 07/10/22 10:46 Antibiotics) & Nausea Review of Systems ROS Statement: Those systems with pertinent positive or pertinent negative responses have been documented in the HPI. ROS Other: All systems not noted in ROS Statement are negative. Past Medical History Past Medical History: GERD/Reflux, Hyperlipidemia, Hypertension Additional Past Medical History / Comment(s): restless leg, back pain History of Any Multi-Drug Resistant Organisms: None Reported Past Surgical History: Back Surgery, Cholecystectomy, Hernia Repair, Orthopedic Surgery, Tubal Ligation Additional Past Surgical History / Comment(s): right shoulder/wrist Past Anesthesia/Blood Transfusion Reactions: No Reported Reaction Past Psychological History: No Psychological Hx Reported Smoking Status: Never smoker Past Alcohol Use History: Occasional Past Drug Use History: None Reported - Past Family History Mother Family Medical History: Cancer Additional Family Medical History / Comment(s): Mother had rectal CA Father Family Medical History: CVA/TIA General Exam Limitations: no limitations General appearance: alert, in no apparent distress Head exam: Present: atraumatic, normocephalic, normal inspection Respiratory exam: Present: normal lung sounds bilaterally. Absent: respiratory distress, wheezes, rales, rhonchi, stridor Cardiovascular Exam: Present: regular rate, normal rhythm, normal heart sounds. Absent: systolic murmur, diastolic murmur, rubs, gallop, clicks GI/Abdominal exam: Present: soft, tenderness (diffuse), normal bowel sounds. Absent: distended Neurological exam: Present: alert, oriented X3, CN II-XII intact Psychiatric exam: Present: normal affect, normal mood Skin exam: Present: warm, dry, intact, normal color. Absent: rash Course Vital Signs 07/10/22 07/10/22 08:25 12:13 Temperature 98.4 F Pulse Rate 102 H 80 Respiratory 18 18 Rate Blood Pressure 146/82 132/78 O2 Sat by Pulse 94 L 100 Oximetry Medical Decision Making - Medical Decision Making This is a 66-year-old female who presents to the emergency department with abdominal pain. Lab work reveals leukocytosis and elevated amylase. This is almost 3 times the upper limit of normal. Computed tomography scan of the abdomen and pelvis obtained as well, revealing mild inflammatory changes around the pancreas that may be reflective of acute pancreatitis. Findings discussed with the patient, and I offered her admission versus discharge home. Patient requests discharge home. She was able to tolerate oral pain medication with Zofran prior to discharge. Prescription for [place] and Zofran provided. Advised her to take the [place] sparingly when her pain is the most severe and to oth erwise alternate with ibuprofen and Tylenol. Reminded her to remain well- hydrated and slowly advance her diet as tolerated. She was given strict return parameters, and I advised that if symptoms are not manageable at home, she should return for possible inpatient management. Return precautions reviewed in depth, the patient is instructed to return to the emergency department with any new, worsening, or concerning symptoms. Patient verbalized understanding. This case was discussed in detail with the attending ED physician. Presentation, findings, and treatment plan discussed in detail as well. - Lab Data Result diagrams: 07/10/22 09:00 07/10/22 09:00 Lab Results 07/10/22 07/10/22 07/10/22 Range/Units 09:00 09:00 09:00 WBC 13.5 H (3.8-10.6) k/uL RBC 4.77 (3.80-5.40) m/uL Hgb 13.7 (11.4-16.0) gm/dL Hct 40.0 (34.0-46.0) % MCV 83.9 (80.0-100.0) fL MCH 28.7 (25.0-35.0) pg MCHC 34.1 (31.0-37.0) g/dL RDW 13.6 (11.5-15.5) % Plt Count 267 (150-450) k/uL MPV 7.4 Neutrophils % 75 % Lymphocytes % 17 % Monocytes % 5 % Eosinophils % 2 % Basophils % 0 % Neutrophils # 10.1 H (1.3-7.7) k/uL Lymphocytes # 2.3 (1.0-4.8) k/uL Monocytes # 0.7 (0-1.0) k/uL Eosinophils # 0.2 (0-0.7) k/uL Basophils # 0.0 (0-0.2) k/uL Sodium 137 (137-145) mmol/L Potassium 4.3 (3.5-5.1) mmol/L Chloride 104 (98-107) mmol/L Carbon Dioxide 23 (22-30) mmol/L Anion Gap 10 mmol/L BUN 11 (7-17) mg/dL Creatinine 0.76 (0.52-1.04) mg/dL Est GFR (CKD-EPI)AfAm >90 (>60 ml/min/1.73 sqM) Est GFR (CKD-EPI)NonAf 81 (>60 ml/min/1.73 sqM) Glucose 104 H (74-99) mg/dL Calcium 9.1 (8.4-10.2) mg/dL Total Bilirubin 0.8 (0.2-1.3) mg/dL AST 30 (14-36) U/L ALT 35 H (4-34) U/L Alkaline Phosphatase 71 (38-126) U/L Troponin I <0.012 (0.000-0.034) ng/mL Total Protein 7.0 (6.3-8.2) g/dL Albumin 4.2 (3.5-5.0) g/dL Amylase 92 (30-110) U/L Lipase 836 H (23-300) U/L Urine Color Urine Appearance (Clear) Urine pH (5.0-8.0) Ur Specific [place] (1.001-1.035) Urine Protein (Negative) Urine Glucose (UA) (Negative) Urine Ketones (Negative) Urine Blood (Negative) Urine Nitrite (Negative) Urine Bilirubin (Negative) Urine Urobilinogen (<2.0) mg/dL Ur Leukocyte Esterase (Negative) Urine RBC (0-5) /hpf Urine WBC (0-5) /hpf Ur Squamous Epith Cells (0-4) /hpf Urine Mucus (None) /hpf 07/10/22 Range/Units 09:10 WBC (3.8-10.6) k/uL RBC (3.80-5.40) m/uL Hgb (11.4-16.0) gm/dL Hct (34.0-46.0) % MCV (80.0-100.0) fL MCH (25.0-35.0) pg MCHC (31.0-37.0) g/dL RDW (11.5-15.5) % Plt Count (150-450) k/uL MPV Neutrophils % % Lymphocytes % % Monocytes % % Eosinophils % % Basophils % % Neutrophils # (1.3-7.7) k/uL Lymphocytes # (1.0-4.8) k/uL Monocytes # (0-1.0) k/uL Eosinophils # (0-0.7) k/uL Basophils # (0-0.2) k/uL Sodium (137-145) mmol/L Potassium (3.5-5.1) mmol/L Chloride (98-107) mmol/L Carbon Dioxide (22-30) mmol/L Anion Gap mmol/L BUN (7-17) mg/dL Creatinine (0.52-1.04) mg/dL Est GFR (CKD-EPI)AfAm (>60 ml/min/1.73 sqM) Est GFR (CKD-EPI)NonAf (>60 ml/min/1.73 sqM) Glucose (74-99) mg/dL Calcium (8.4-10.2) mg/dL Total Bilirubin (0.2-1.3) mg/dL AST (14-36) U/L ALT (4-34) U/L Alkaline Phosphatase (38-126) U/L Troponin I (0.000-0.034) ng/mL Total Protein (6.3-8.2) g/dL Albumin (3.5-5.0) g/dL Amylase (30-110) U/L Lipase (23-300) U/L Urine Color Yellow Urine Appearance Clear (Clear) Urine pH 6.5 (5.0-8.0) Ur Specific [place] 1.015 (1.001-1.035) Urine Protein Trace H (Negative) Urine Glucose (UA) Negative (Negative) Urine Ketones Negative (Negative) Urine Blood Moderate H (Negative) Urine Nitrite Negative (Negative) Urine Bilirubin Negative (Negative) Urine Urobilinogen <2.0 (<2.0) mg/dL Ur Leukocyte Esterase Trace H (Negative) Urine RBC 8 H (0-5) /hpf Urine WBC 1 (0-5) /hpf Ur Squamous Epith Cells 1 (0-4) /hpf Urine Mucus Rare H (None) /hpf - Radiology Data Radiology results: report reviewed, image reviewed Disposition Clinical Impression: Pancreatitis Disposition: HOME SELF-CARE Instructions (If sedation given, give patient instructions): Pancreatitis (ED) Additional Instructions: Return to the emergency department with any new, worsening, or concerning sy mptoms. Alternate with ibuprofen and Tylenol as needed for pain relief and take the [place] sparingly when your pain is the most severe. The Zofran can be taken every 8 hours as needed for nausea and vomiting. Make sure that you stay well- hydrated and slowly advance your diet as tolerated. Follow up with your primary care provider in 1-2 days. Prescriptions: HYDROcodone/APAP 7.5-325MG [[place] 7.5-325] 1 tab PO Q6HR PRN 3 Days #12 tab PRN Reason: Pain Ondansetron Odt [Zofran Odt] 4 mg PO Q8HR PRN #20 tab PRN Reason: Nausea And Vomiting Is patient prescribed a controlled substance at d/c from ED?: Yes When asked, does pt state using other controlled substances?: No If prescribed controlled substance>3 days was MAPS reviewed?: Prescribed <3 Days Referrals: Katherine Byrd MD [Primary Care Provider] - 1-2 days
[2022-07-10 09:22] LABS: ALT 35 U/L (4-34); AST 30 U/L (14-36); African American GFR (CKD) >90 (>60 ml/min/1.73 sqM); Albumin 4.2 g/dL (3.5-5.0); Alkaline Phosphatase 71 U/L (38-126); Amylase 92 U/L (30-110); Anion Gap 10 mmol/L; Blood Urea Nitrogen 11 mg/dL (7-17); Calcium 9.1 mg/dL (8.4-10.2); Carbon Dioxide 23 mmol/L (22-30); Chloride 104 mmol/L (98-107); Glucose 104 mg/dL (74-99); Lipase 836 U/L (23-300); Non-African American GFR(CKD) 81 (>60 ml/min/1.73 sqM); Sodium 137 mmol/L (137-145); Total Bilirubin 0.8 mg/dL (0.2-1.3)
[2022-07-10 09:25] LABS: Potassium 4.3 mmol/L (3.5-5.1)
[2022-07-10 09:31] LABS: Appearance,Urine Clear (Clear); Bilirubin,Urine Negative (Negative); Blood,Urine Moderate (Negative); Color,Urine Yellow; Glucose,Urine (UA) Negative (Negative); Ketones,Urine Negative (Negative); Leukocyte Esterase,Urine Trace (Negative); Mucus,Urine Rare /hpf; Nitrite,Urine Negative (Negative); PH, Urine 6.5 (5.0-8.0); Protein,Urine Trace (Negative); RBC,Urine 8 /hpf (0-5); Specific Gravity,Urine 1.015 (1.001-1.035); Squamous Epithelial Cell,Urine 1 /hpf (0-4); Urobilinogen,Urine <2.0 mg/dL (<2.0); WBC,Urine 1 /hpf (0-5)
--- NOTE | 2022-07-10 10:40 | CT ---
EXAMINATION TYPE: CT abdomen pelvis w con DATE OF EXAM: 07/10/2022 COMPARISON: CT 02/10/2022 HISTORY: Abdominal pain CT DLP: 1835.5 mGycm Automated exposure control for dose reduction was used. TECHNIQUE: Helical acquisition of images from the lung bases through the pelvis have been completed. CONTRAST: Performed without Oral Contrast and with IV Contrast, patient injected with 100 mL of Isovue 300. FINDINGS: LUNG BASES: No significant abnormality is appreciated. AORTA: No significant abnormality is appreciated. LIVER/GB: No significant double change is appreciated, mixed calcified low attenuation focus within t he posterior right lobe of the liver is stable and appears chronic, patient is post cholecystectomy, liver shows low attenuation likely due to hepatic steatosis. Small cystic focus present anteriorly wi thin the liver is stable, axial image 18. PANCREAS: There has been interval placement of a stent coursing from the duodenum into the pancreatic duct. The inflammatory changes about the pancreas have improved. There is some questionable peripanc reatic hazy increased attenuation pancreatic head, correlate to exclude pancreatitis, dilation of the common bile duct may be due to chronic postcholecystectomy change SPLEEN: No significant abnormality is seen. ADRENALS: No significant abnormality is seen. KIDNEYS: No significant change is seen, parapelvic cysts are present on the left. REPRODUCTIVE ORGANS: No significant abnormality is seen BOWEL: No significant abnormality is seen. The appendix is filled with high attenuation material, no evident appendicitis, there is some high attenuation present within the colon, correlate for possibl e ingestion of radiodense medication. Diverticular changes are present within the colon. Some water d istended loops of proximal small bowel are present per CT scan protocol. FREE AIR: No Free Air visible. ASCITES: None visible. PELVIC ADENOPATHY: None visualized. RETROPERITONEAL ADENOPATHY: No Retroperitoneal Adenopathy visible. URINARY BLADDER: No significant abnormality is seen. OSSEOUS STRUCTURES: Patient shows posterior fusion change at L3-L5, intervertebral spacing device pr esent at L4-5, degenerative disc changes are present in the visualized spine, there is a spinal curva ture. The right transpedicular screw at L5 breaches the lateral cortex. IMPRESSION: CORRELATE TO EXCLUDE PANCREATITIS. HEPATIC STEATOSIS, DIVERTICULOSIS, POSTOP AND POSTPROCEDURAL CYR ES. ADDITIONAL FINDINGS ABOVE.
[2022-07-10] MEDS ORDERED: ONDANSETRON ODT 4 MG TAB PO STA (10:52)
[2022-07-10] MEDS ORDERED: HYDROcodone/APAP 7.5-325MG 1 EACH TAB PO ONE (10:52)
[2022-07-10 12:17] VITALS: BP 132/78; PULSE 80
== END 2022-07-10 12:19 | disposition home or self-care (01) ==
LOC: EC 08:21
DX: K85.90 Acute pancreatitis without necrosis or infection, unspecified (principal); I10 Essential (primary) hypertension; K21.9 Gastro-esophageal reflux disease without esophagitis; E78.5 Hyperlipidemia, unspecified; Z79.83 Long term (current) use of bisphosphonates; Z79.899 Other long term (current) drug therapy; Z88.2 Allergy status to sulfonamides
CPT/HCPCS: 36415; 80053; 82150; 83690; 84484; 85025; 81001; 74177; 99284; 96374; 96375; 96361; J2405; J1170; Q9967

== ENCOUNTER 2022-07-11 17:20 | Emergency (ER) | payer MEDICARE ==
[2022-07-11 17:24] VITALS: TEMP 98.3
[2022-07-11] MEDS ORDERED: SODIUM CHLORIDE 0.9% 2,000 ML IV STA (18:43)
[2022-07-11] MEDS ORDERED: HYDROmorphone 0.5 MG/0.5 ML SYRINGE IVP STA (18:43)
[2022-07-11] MEDS ORDERED: ONDANSETRON 4 MG/2 ML VIAL IVP STA (18:43)
[2022-07-11 19:33] LABS: Basophils % (A) 0 %; Eosinophils # (A) 0.5 k/uL (0-0.7); Eosinophils % (A) 4 %; HCT 37.2 % (34.0-46.0); HGB 12.5 gm/dL (11.4-16.0); Lymphocytes # (A) 1.8 k/uL (1.0-4.8); Lymphocytes % (A) 17 %; MCH 28.7 pg (25.0-35.0); MCHC 33.7 g/dL (31.0-37.0); MCV 85.3 fL (80.0-100.0); Mean Platelet Volume 7.6; Monocytes # (A) 0.6 k/uL (0-1.0); Monocytes % (A) 6 %; Neutrophils # (A) 7.5 k/uL (1.3-7.7); Neutrophils % (A) 71 %; Platelet Count 281 k/uL (150-450); RBC 4.36 m/uL (3.80-5.40); RDW 13.2 % (11.5-15.5); WBC 10.5 k/uL (3.8-10.6)
--- NOTE | 2022-07-11 19:34 | XR ---
EXAMINATION TYPE: XR KUB DATE OF EXAM: 07/11/2022 COMPARISON: NONE HISTORY: Pain. Constipation TECHNIQUE: 2 views upright FINDINGS: There is no sign of intestinal obstruction or pneumoperitoneum. Fecal pattern is normal. No evidence of a mass. There are no pathologic calcifications. Lung bases appear clear. IMPRESSION: Nonacute abdomen.
[2022-07-11 19:47] LABS: ALT 27 U/L (4-34); African American GFR (CKD) >90 (>60 ml/min/1.73 sqM); Amylase 52 U/L (30-110); Anion Gap 8 mmol/L; Blood Urea Nitrogen 14 mg/dL (7-17); Carbon Dioxide 27 mmol/L (22-30); Chloride 100 mmol/L (98-107); Glucose 102 mg/dL (74-99); Lipase 396 U/L (23-300); Non-African American GFR(CKD) 81 (>60 ml/min/1.73 sqM); Sodium 135 mmol/L (137-145); Total Bilirubin 0.7 mg/dL (0.2-1.3); Total Protein 6.6 g/dL (6.3-8.2)
[2022-07-11 19:58] LABS: AST 25 U/L (14-36); Alkaline Phosphatase 74 U/L (38-126); Potassium 4.3 mmol/L (3.5-5.1)
--- NOTE | 2022-07-11 21:22 | ED ---
Abdominal Pain HPI - General Chief Complaint: Abdominal Pain Stated Complaint: Abd pain Time Seen by Provider: 07/11/22 18:40 Source: patient Mode of arrival: ambulatory Limitations: no limitations - History of Present Illness Initial Comments: Patient is a 66-year-old female who presents to the emergency department with a chief complaint of abdominal pain. Patient states 3 days ago she had a pancreatic stent placed at [facility] due to recurrent pancreatitis. She was told that following procedure she could have episode of acute pancreatitis. Patient initially felt well after procedure until yesterday when she began to develop abdominal pain and nausea typical of her pancreatitis. She was evaluated in her emergency department and lipase was found to be 836. Patient was offered admission however declined. She went home with Abbott and Zofran. States she took one Abbott this morning which helped pain for a couple hours however soon returned. She reports nausea without vomiting. Denies fever and chills. - Related Data Home Medications Medication Instructions Recorded Confirmed amLODIPine [Norvasc] 5 mg PO DAILY 06/21/20 07/11/22 rOPINIRole HCL [Requip] 0.5 mg PO HS 06/21/20 07/11/22 Baclofen [Lioresal] 10 mg PO BID PRN 02/10/22 07/11/22 Simvastatin [Zocor] 20 mg PO HS 07/10/22 07/11/22 Previous Rx's Medication Instructions Recorded Pantoprazole [Protonix] 40 mg PO DAILY 14 Days #14 tab 02/13/22 HYDROcodone/APAP 7.5-325MG [Abbott 1 tab PO Q6HR PRN 3 Days #12 tab 07/10/22 7.5-325] Ondansetron Odt [Zofran Odt] 4 mg PO Q8HR PRN #20 tab 07/10/22 Allergies Allergy/AdvReac Type Severity Reaction Status Date / Time Sulfa (Sulfonamide Allergy Rash/Hives Verified 07/11/22 21:12 Antibiotics) & Nausea Review of Systems ROS Statement: Those systems with pertinent positive or pertinent negative responses have been documented in the HPI. ROS Other: All systems not noted in ROS Statement are negative. Past Medical History Past Medical History: GERD/Reflux, Hyperlipidemia, Hypertension Additional Past Medical History / Comment(s): restless leg, back pain History of Any Multi-Drug Resistant Organisms: None Reported Past Surgical History: Back Surgery, Cholecystectomy, Hernia Repair, Orthopedic Surgery, Tubal Ligation Additional Past Surgical History / Comment(s): right shoulder/wrist Past Anesthesia/Blood Transfusion Reactions: No Reported Reaction Past Psychological History: No Psychological Hx Reported Smoking Status: Never smoker Past Alcohol Use History: Occasional Past Drug Use History: None Reported - Past Family History Mother Family Medical History: Cancer Additional Family Medical History / Comment(s): Mother had rectal CA Father Family Medical History: CVA/TIA General Exam Limitations: no limitations General appearance: alert, in no apparent distress Eye exam: Present: normal appearance, PERRL, EOMI. Absent: scleral icterus, conjunctival injection, periorbital swelling Respiratory exam: Present: normal lung sounds bilaterally. Absent: respiratory distress, wheezes, rales, rhonchi, stridor Cardiovascular Exam: Present: regular rate, normal rhythm, normal heart sounds. Absent: systolic murmur, diastolic murmur, rubs, gallop, clicks GI/Abdominal exam: Present: soft, tenderness (epigastric, moderate ), normal bowel sounds. Absent: distended, guarding, rebound, rigid Neurological exam: Present: alert, oriented X3, CN II-XII intact Psychiatric exam: Present: normal affect, normal mood Skin exam: Present: warm, dry, intact, normal color. Absent: rash Course Vital Signs 07/11/22 07/11/22 17:22 21:30 Temperature 98.3 F Pulse Rate 92 83 Respiratory 20 18 Rate Blood Pressure 136/73 128/68 O2 Sat by Pulse 96 95 Oximetry Medical Decision Making - Medical Decision Making This is a 66 year-old female presenting with epigastric pain s/p pancreatic stent 3 days ago. Afebrile .Laboratory studies obtained. There is no leukocytosis. White blood cell count is 10.5 which is improved from 13.5 yesterday. Lipase is 296 which is significantly improved from 836 yesterday. Amylase is within normal limits, unchanged from yesterday. Patient given fluids, pain and nausea medication. Case discussed with patient and her . Patient reassured that her labs are improving however I did inform patient that if is feeling unwell she can be admitted for pain control and hydration. Patient states her pain and nausea have improved significantly. Patient eager to go home. Patient will be discharged with instruction to follow-up with her surgeon. She has a follow-up on the but will call on Wednesday for possible sooner appointment. Already as Abbott and Zoan at home. We discussed the importance of hydration and low-fat diet. Patient discharged in stable condition. Dr. Terry is my attending. - Lab Data Result diagrams: 07/11/22 19:07/11/22 19: Lab Results 07/11/22 07/11/22 07/11/22 Range/Units 19: 19: 19: WBC 10.5 (3.8-10.6) k/uL RBC 4.36 (3.80-5.40) m/uL Hgb 12.5 (11.4-16.0) gm/dL Hct 37.2 (34.0-46.0) % MCV 85.3 (80.0-100.0) fL MCH 28.7 (25.0-35.0) pg MCHC 33.7 (31.0-37.0) g/dL RDW 13.2 (11.5-15.5) % Plt Count 281 (150-450) k/uL MPV 7.6 Neutrophils % 71 % Lymphocytes % 17 % Monocytes % 6 % Eosinophils % 4 % Basophils % 0 % Neutrophils # 7.5 (1.3-7.7) k/uL Lymphocytes # 1.8 (1.0-4.8) k/uL Monocytes # 0.6 (0-1.0) k/uL Eosinophils # 0.5 (0-0.7) k/uL Basophils # 0.0 (0-0.2) k/uL Sodium 135 L (137-145) mmol/L Potassium 4.3 (3.5-5.1) mmol/L Chloride 100 (98-107) mmol/L Carbon Dioxide 27 (22-30) mmol/L Anion Gap 8 mmol/L BUN 14 (7-17) mg/dL Creatinine 0.76 (0.52-1.04) mg/dL Est GFR (CKD-EPI)AfAm >90 (>60 ml/min/1.73 sqM) Est GFR (CKD-EPI)NonAf 81 (>60 ml/min/1.73 sqM) Glucose 102 H (74-99) mg/dL Plasma Lactic Acid Eric 0.6 L (0.7-2.0) mmol/L Calcium 9.0 (8.4-10.2) mg/dL Total Bilirubin 0.7 (0.2-1.3) mg/dL AST 25 (14-36) U/L ALT 27 (4-34) U/L Alkaline Phosphatase 74 (38-126) U/L Total Protein 6.6 (6.3-8.2) g/dL Albumin 4.0 (3.5-5.0) g/dL Amylase 52 (30-110) U/L Lipase 396 H (23-300) U/L Disposition Clinical Impression: Pancreatitis, Epigastric pain, Nausea Disposition: HOME SELF-CARE Condition: Good Instructions (If sedation given, give patient instructions): Pancreatitis (ED) Additional Instructions: Take your previously prescribed Abbott for pain. Please do not take next dose until 1:15 AM. Take your previously prescribed Zofran for nausea. Do not take next dose until 6:15 AM. Continue drinking a lot of water. Stick to a low-fat diet for the next 3-6 days and gradually advance her diet as your pain and nausea tolerates. Follow-up with your surgeon one to 2 days. Return to the emergency department if you experience new, concerning, or worsening symptoms. Is patient prescribed a controlled substance at d/c from ED?: No Referrals: Katherine Byrd MD [Primary Care Provider] - 1-2 days
[2022-07-11 21:32] VITALS: BP 128/68; PULSE 83; RESP 18
[2022-07-11] MEDS ORDERED: PROCHLORPERAZINE INJ 10 MG/2 ML VIAL IM STA (21:38)
== END 2022-07-11 21:46 | disposition home or self-care (01) ==
LOC: EC 17:20
DX: K85.90 Acute pancreatitis without necrosis or infection, unspecified (principal); K21.9 Gastro-esophageal reflux disease without esophagitis; E78.5 Hyperlipidemia, unspecified; I10 Essential (primary) hypertension; Z79.811 Long term (current) use of aromatase inhibitors; Z88.2 Allergy status to sulfonamides; Z79.899 Other long term (current) drug therapy
CPT/HCPCS: 96374 ×2; 96375; 96361; 99284 ×2; 96372; 36415; 80053; 82150; 83605; 83690; 85025; 74018; J0780; J2405; J1170